=== PATIENT | female | born 1930 | race Caucasian/White ===

== ENCOUNTER → 2016-06-28 | Outpatient (CLI) | payer OTHER ==
[~2016-06-28] MED LIST: ASCA500 PO; ASPEC81 PO; CALCTAB5 PO; CHOL1TAB46 PO; CLBCRM30 EXT; DICL1GEL12 TOP; FOLI1TAB7 PO; HYCUDL5 PO; HYDR200T5 PO; LEVO1TAB35 PO; LVQ750 PO; METH2.5T PO; MULT-506 PO; NITR1CAP32 PO; OMEG10007 PO; POLY335040 PO; PRAV80TA2 PO; PRD5 PO; PRED-301 PO; PRED1SUS3; PRED20TA PO; PREG1CAP28 PO; PRLSR20 PO; SYN100 PO; SYN88 PO; VNTHFA/IN INH; VSC/5 PO; levoxyl PO
== END | disposition home or self-care (01) ==
LOC: C.LABSPEC 12:23
PROVIDERS: ATTEND Internal Medicine
DX: R19.4 Change in bowel habit (principal)

== ENCOUNTER → 2016-07-04 | Outpatient (CLI) | payer OTHER ==
[2016-07-04 13:19] LABS: ALT/SGPT 27 U/L (12-78); AST/SGOT 22 U/L (15-37); BLOOD UREA NITROGEN 17 mg/dl (7-18); BUN/CREATININE RATIO 19.2 (10-20); CALCIUM 9.7 mg/dl (8.5-10.1); CARBON DIOXIDE 32 mmol/L (21-32); CHLORIDE 106 mmol/L (98-107); CREATININE 0.86 mg/dl (0.60-1.20); GLUCOSE 84 mg/dl (70-99); POTASSIUM 3.8 mmol/L (3.5-5.1); SODIUM 144 mmol/L (136-145)
[2016-07-04 13:27] LABS: ALKALINE PHOSPHATASE 47 U/L (45-117); CHOLESTEROL 218 mg/dl (0-200); HDL CHOLESTEROL 107 mg/dl; LDL CHOLESTEROL CALCULATED 98 mg/dl; TRIGLYCERIDES 66 mg/dl (0-150); VERY LOW DENSITY LIPOPROT CALC 13 mg/dl
== END | disposition home or self-care (01) ==
LOC: C.LABSPEC 12:28
PROVIDERS: ATTEND Internal Medicine
DX: Z00.01 Encounter for general adult medical examination with abnormal findings (principal); E03.9 Hypothyroidism, unspecified; E55.9 Vitamin D deficiency, unspecified

== ENCOUNTER 2016-08-20 11:27 | Inpatient (IN) | payer OTHER ==
[2016-08-20] VITALS (7 sets, daily range): BP systolic 113–129; BP diastolic 59–71; PULSE 79–117; TEMP 36.6–37.7; O2SAT 90–97; Ht 165.1 cm; Wt 54.8 kg
[~2016-08-20] VITALS: Ht 165.1 cm; Wt 54.8 kg
[~2016-08-20 11:27] MED LIST changes: -CLBCRM30 EXT; -HYCUDL5 PO; -HYDR200T5 PO; -LEVO1TAB35 PO; -LVQ750 PO; -PRD5 PO; -PRED20TA PO; -SYN100 PO; -SYN88 PO; -VNTHFA/IN INH
[2016-08-20] MEDS ORDERED: ACETAMINOPHEN 325 MG TAB PO PRN (12:00)
[2016-08-20] MEDS ORDERED: ONDANSETRON INJ 2 MG/ML 2 ML VIAL IV PRN (12:00)
[2016-08-20] MEDS ORDERED: LEVALBUTEROL 1.25MG/3ML NEB INH SCH (12:15)
[2016-08-20] MEDS ORDERED: LEVOFLOXACIN / D5W 750 MG in PREMIXED IN D5W 150 ML IV ONE (12:30)
[2016-08-20 12:48] LABS: BASO % 0.1 %; BASO ABS # 0.02 K/uL (0-0.2); EOS % 0.4 %; LYMPH % 8.5 %; MEAN CELL VOLUME 96.4 fL (80-100); MEAN CORPUSCULAR HEMOGLOBIN 33.1 pg (25-34); MEAN PLATELET VOLUME 9.7 fL (7.4-10.4); MONO % 3.9 %; NEUT % 86.1 %; PLATELET COUNT 370 K/uL (130-400); RED BLOOD COUNT 3.84 M/uL (4.2-5.4); WHITE BLOOD COUNT 16.54 K/uL (4.8-10.8)
[2016-08-20 13:04] LABS: PARTIAL THROMBOPLASTIN RATIO 1.1
[2016-08-20 13:09] LABS: COMPLETE YES; MEAN CORPUSCULAR HGB CONC 34.3 g/dl (32-36)
[2016-08-20 13:18] LABS: ALB/GLOB RATIO 0.6 (0.9-2); BUN/CREATININE RATIO 9.4 (10-20); CALCIUM 9.4 mg/dl (8.5-10.1); CREATININE 0.75 mg/dl (0.60-1.20); MAGNESIUM 2.2 mg/dl (1.8-2.4); POTASSIUM 4.1 mmol/L (3.5-5.1)
[2016-08-20] MEDS: SODIUM CHLORIDE 0.9% 1000ML 1,000 ML IV SCH ×2 (13:29→21:54)
[2016-08-20] MEDS: LEVALBUTEROL 1.25MG/3ML NEB INH SCH ×2 (14:14→19:51)
--- NOTE | 2016-08-20 15:05 | DIAGNOSTIC IMAGING REPORT ---
HEAD CT NONCONTRAST CT DOSE: 638.56 mGycm HISTORY: Trauma. Pain. CLOSED HEAD TRAUMA - OCCIPITAL. HEADACHE TECHNIQUE: Multiaxial CT images of the head were performed without the use of intravenous contrast. Comparison: None. Findings: Considerable mucosal thickening of all major sinuses. The calvarium and skull base are intact. The ventricles and sulci are within normal limits. There is no mass, hematoma, midline shift, or acute infarct. Impression: No acute intracranial abnormality. Extensive sinus disease Electronically signed by: Sameer Pepper M.D. 08/20/2016 3:03 PM Dictated Date/Time: 08/20/2016 2:55 PM
--- NOTE | 2016-08-20 15:21 | DIAGNOSTIC IMAGING REPORT ---
CHEST 2 VIEWS ROUTINE CLINICAL HISTORY: BRONCHOPNEUMONITIS dyspnea COMPARISON STUDY: 09/29/2015 FINDINGS: Interval development of a focal consolidative infiltrate medial right base. This also a suggestion of potential scattered nodular changes throughout both hemithoraces. Diaphragms smooth. No evidence for cardiac enlargement. IMPRESSION: 1. Focal consolidative infiltrate medial right base. 2. Scattered areas of nodularity throughout both hemithoraces raising the possibility of multifocal infiltrative change versus metastatic nodularity. 3. CT chest versus a nonemergent CT of the chest post treatment is suggested as follow-up Electronically signed by: Sameer Pepper M.D. 08/20/2016 3:19 PM Dictated Date/Time: 08/20/2016 3:18 PM
[2016-08-20] MEDS: PRAVASTATIN SOD 40 MG TAB PO SCH (18:15)
[2016-08-20] MEDS: ASCORBIC ACID 500 MG TAB PO SCH (18:16)
--- NOTE | 2016-08-20 19:46 | HISTORY & PHYSICAL EXAMINATION ---
DATE OF ADMISSION: 08/20/2016 An 85-year-old female admitted directly from my office with persistent fever and chills, severe cough, started to produce yellow sputum, generalized weakness and poor appetite. HISTORY OF PRESENT ILLNESS: The patient with multiple medical problems including rheumatoid arthritis, she is on methotrexate and prednisone; osteoarthritis; osteopenia; hypercholesterolemia and hypothyroidism. The patient has been ill for about a week. She presented with symptomatology consistent with a viral upper respiratory tract infection. She has been taking Tylenol Cold and also Delsym for cough. The patient was seen in the office because her symptoms have persisted and she was not improving. She was still complaining of feeling weak and tired. Poor appetite. Poor oral intake. Having profuse sweating. Chills. Feeling congested in her nose and sinuses. Also congested in her chest. Having cough, producing yellow sputum. No hemoptysis. She had no vomiting. No diarrhea. In the office, she was febrile. Her temperature was 101.4. She was feeling very weak. Short of breath. In view of her persistent symptomatology, she was admitted for further treatment. The patient also stated in the office that about 4 weeks ago she fell backward and she hit the back of her head. She has been feeling lightheaded. PAST MEDICAL HISTORY: 1. She was hospitalized in April 2015 with multifocal pneumonia that required treatment with IV antibiotics. After her episode because of persistent abnormality in her chest x-ray she was seen by Dr. Osvaldo Cobb in pulmonary consultation. No further evaluation or testing were recommended. Eventually, her symptoms improved. 2. Rheumatoid arthritis, diagnosed in 2010. 3. Total abdominal hysterectomy and bilateral salpingo-oophorectomy at age 29. She had endometriosis. She did receive hormonal replacement therapy until 2000. 4. Appendectomy when she was a teenager. 5. Biopsy of the right breast which was benign, done many years ago. She had another biopsy about 2 years ago which was also benign. She is a 3, para 2 with one miscarriage. 6. Longstanding history of hypercholesterolemia, treated. 7. Longstanding history of hypothyroidism, treated. 8. Osteoarthritis involving multiple joints. 9. Osteopenia. She is on Fosamax and also calcium and vitamin D supplements. 10. She has had a problem with decreased hearing and tinnitus. She has had ENT evaluation. She has hearing aids. 11. Herpes zoster in July 2015 involving the right chest area. She was treated acutely, but also she developed postherpetic neuralgia and she was referred to the pain management clinic. Since then her symptoms have subsided. SOCIAL HISTORY: She is , had 2 children. Denied any smoking. No alcohol. No excessive coffee, tea or soft drinks. She worked in the [employer] business. She is retired. FAMILY HISTORY: Her father in his late 80s or early 90s. He had a problem with circulation as she described it. Her mother at age 72, had atherosclerotic heart disease. She had 2 brothers and 1 sister. Children are alive and well. ALLERGIES: BACTRIM (RASH). REVIEW OF SYSTEMS: She denied any headache, but mostly she is complaining of pressure in her sinuses and nose. She does have rhinorrhea. She does have postnasal drip. Denied any earache. No chest pain with the cough. No shortness of breath. She has persistent cough and producing yellow sputum now. No hemoptysis. No pain in her breasts. No abdominal pain. Slight nausea. Very poor appetite. Poor oral intake. No diarrhea. Denied any pain in her back, but she does have pain in the general area in her muscles and joints. PHYSICAL EXAMINATION: GENERAL: Well-developed, in no acute distress. She is acutely ill. Her weight was recorded at 54.8 kg, height 165.1 cm, BMI 20.1. VITAL SIGNS: Blood pressure 129/59, pulse 112, respirations 18, temperature 37.7 and oxygen saturation 94% on room air. SKIN: Warm and dry. No evidence of any rash. HEENT: Congested nasal mucosa. She usually does wear glasses. She does usually wear hearing aids, but not wearing them today. NECK: Supple. Nontender. No adenopathy, no thyromegaly, no JVD. Normal carotid pulses. No carotid bruit. CHEST: Normal. HEART: Regular heart sounds without any murmur, rub or gallop. LUNGS: Bilateral rhonchi. No wheezes. ABDOMEN: Soft, nontender, without organomegaly or masses. BACK: No spinal tenderness. EXTREMITIES: No edema, clubbing or cyanosis. Osteoarthritic changes. Absent dorsalis pedis pulses. Good posterior tibialis pulses. NEUROLOGIC: She is alert and oriented without evidence of any deficits. LABORATORY TESTS: WBC count 16,540, hemoglobin 12.7, hematocrit 37%, platelet count 370,000. Sodium 134, potassium 4.1, chloride 98, CO2 27, BUN 7, creatinine 0.75, glucose 100, calcium 9.4, magnesium 2.2, total bilirubin 0.5, AST 26, ALT 28, alkaline phosphatase 93, total protein 7.7, albumin 2.9. Prothrombin time 11, INR 1.0, PTT 28.7. Her influenza A and B rapid screen were negative. Her chest x-ray showed multiple abnormalities with focal consolidative infiltrate, medial right base. She also has scattered areas of nodularity throughout both lung beach. This is quite similar to when she presented with her multifocal pneumonia the last time she was hospitalized. CT scan of the head without contrast showed no significant abnormality as far as her brain, but she does have significant sinus disease. Her electrocardiogram showed sinus tachycardia with nonspecific ST-T wave changes. ASSESSMENT: 1. Multifocal pneumonia. 2. Generalized weakness. 3. Anorexia and weight loss. 4. Rheumatoid arthritis. 5. Hypothyroidism. 6. Hypercholesterolemia. 7. Sinus disease. 8. Osteoarthritis. PLAN: The patient was admitted to a medical bed. Resuscitation level 1. Cultures were done. All her laboratory tests were ordered. She was started on IV fluids. Started on IV Levaquin. High-flow treatments with Xopenex. She was continued on most of her oral medications. We will wait for the cultures. Adjust her antibiotic therapy as indicated. We will let her recover and will eventually order physical and occupational therapy. We will need to follow up on her chest x-ray and we may also need to get a CT scan of the chest; that is exactly the cycle that was followed the last time she was hospitalized with similar problem.
[2016-08-20] MEDS: HEPARIN SOD 5000 UNIT/0.5 ML CARP SQ SCH (21:51)
[2016-08-20] MEDS: DOCUSATE SODIUM 100 MG CAP PO SCH (21:54)
[2016-08-20 23:08] LABS: MANUAL MICROSCOPIC REQUIRED? NO; REVIEW REQ? NO; URINE APPEARANCE CLEAR (CLEAR); URINE BILIRUBIN NEG (NEG); URINE COLOR YELLOW; URINE EPITHELIAL CELL AUTO >30 /lpf (0-5); URINE NITRITE NEG (NEG); URINE SPECIFIC GRAVITY 1.009 (1.000-1.030); UROBILINOGEN NEG (NEG)
[2016-08-21] VITALS (7 sets, daily range): BP systolic 115–120; BP diastolic 63; PULSE 65–86; TEMP 36.5–36.7; O2SAT 92–96
[2016-08-21] MEDS: LEVALBUTEROL 1.25MG/3ML NEB INH SCH ×4 (02:08→19:58)
[2016-08-21] MEDS: LEVOTHYROXINE 88 MCG TAB PO SCH (05:48)
[2016-08-21 06:42] LABS: HEMATOCRIT 33.1 % (37-47); MEAN CELL VOLUME 95.7 fL (80-100); MEAN CORPUSCULAR HEMOGLOBIN 32.4 pg (25-34); MEAN CORPUSCULAR HGB CONC 33.8 g/dl (32-36); MEAN PLATELET VOLUME 9.3 fL (7.4-10.4); PLATELET COUNT 307 K/uL (130-400); RED BLOOD COUNT 3.46 M/uL (4.2-5.4); WHITE BLOOD COUNT 12.78 K/uL (4.8-10.8)
[2016-08-21 07:14] LABS: BUN/CREATININE RATIO 14.5 (10-20); CALCIUM 8.5 mg/dl (8.5-10.1); CREATININE 0.6 mg/dl (0.60-1.20); POTASSIUM 3.7 mmol/L (3.5-5.1)
[2016-08-21 07:21] LABS: BASO % 0.1 %; BASO ABS # 0.01 K/uL (0-0.2); COMPLETE YES; IG% 0.9 %; LYMPH % 9.3 %; LYMPH ABS # 1.19 K/uL (1.2-3.4); MONO % 3.7 %; TOXIC GRANULATION 1+
[2016-08-21] MEDS: SODIUM CHLORIDE 0.9% 1000ML 1,000 ML IV SCH ×2 (07:43→17:22)
[2016-08-21] MEDS: DOCUSATE SODIUM 100 MG CAP PO SCH ×2 (07:43→20:50)
[2016-08-21] MEDS: ASCORBIC ACID 500 MG TAB PO SCH (07:43)
[2016-08-21] MEDS: CHOLECALCIFEROL 1000 INTER.UNIT TAB PO SCH (07:43)
[2016-08-21] MEDS: HEPARIN SOD 5000 UNIT/0.5 ML CARP SQ SCH ×2 (07:49→20:53)
[2016-08-21] MEDS: ASPIRIN 81 MG ECTAB PO SCH (11:52)
[2016-08-21] MEDS: LEVOFLOXACIN / D5W 750 MG in PREMIXED IN D5W 150 ML IV SCH (14:02)
[2016-08-21] MEDS: PRAVASTATIN SOD 40 MG TAB PO SCH (17:23)
--- NOTE | 2016-08-21 17:57 | PROGRESS NOTE ---
DATE: 08/21/2016 An 85-year-old female admitted with multifocal pneumonia. The patient was having fever and chills and cough and generalized weakness and poor appetite. The patient was admitted. Cultures were done. She was started on IV Levaquin. The patient remains afebrile since her admission. She is still feeling weak and tired but definitely her condition is gradually improving. I saw her this morning and again this afternoon. This afternoon, she was sitting up in the chair and she was eating her meal. Her appetite seems to be improving. She denied any headache or dizziness or lightheadedness. Denied any chest pain, no shortness of breath. Still with cough. Bringing up quite a bit of secretions, but mostly clear now. No hemoptysis. No nausea, no vomiting. No pain in her back or extremities. PHYSICAL EXAMINATION: GENERAL: Well developed, in no distress. VITAL SIGNS: Blood pressure 115/63, pulse 75, respirations 16, temperature 36.5, oxygen saturation 93% on room air. SKIN: Warm and dry. No rash. HEENT: No mucosal abnormality. NECK: No JVD. No adenopathy. HEART: Regular heart sounds. LUNGS: Only very occasional rhonchi. No wheezing. ABDOMEN: Soft, nontender. EXTREMITIES: No edema, clubbing, or cyanosis. TODAY'S LABORATORY TESTS: WBC count 12,780, hemoglobin 11.2, hematocrit 33.1, platelet count 307,000. Sodium 141, potassium 3.7, chloride 106, CO2 24, BUN 9, creatinine 0.6, glucose 106, calcium 8.5. ASSESSMENT: 1. Multifocal bilateral pneumonia. 2. Rheumatoid arthritis. 3. Osteoarthritis. 4. Generalized weakness. PLAN: 1. Overall, she is doing well. Her condition is improving. 2. Continuing the same medications. 3. Continue IV fluid. 4. Encouraged to be out of bed and ambulate.
[2016-08-21] MEDS ORDERED: COUGH DROP (SUGAR FREE) LOZ 24 LOZ/1 BOX ONE (23:32)
[2016-08-21] MEDS ORDERED: COUGH DROP (SUGAR FREE) LOZ 24 LOZ/1 BOX PO PRN (23:45)
[2016-08-22] VITALS (7 sets, daily range): BP systolic 118–126; BP diastolic 67–70; PULSE 72–94; TEMP 36.6–36.8; O2SAT 95–98
[2016-08-22] MEDS: LEVALBUTEROL 1.25MG/3ML NEB INH SCH ×4 (02:16→19:22)
[2016-08-22] MEDS: SODIUM CHLORIDE 0.9% 1000ML 1,000 ML IV SCH ×3 (03:44→20:39)
[2016-08-22 06:15] LABS: HEMATOCRIT 30.8 % (37-47); MEAN CELL VOLUME 95.4 fL (80-100); MEAN CORPUSCULAR HEMOGLOBIN 32.5 pg (25-34); MEAN CORPUSCULAR HGB CONC 34.1 g/dl (32-36); MEAN PLATELET VOLUME 9.2 fL (7.4-10.4); PLATELET COUNT 318 K/uL (130-400); RED BLOOD COUNT 3.23 M/uL (4.2-5.4); WHITE BLOOD COUNT 11.47 K/uL (4.8-10.8)
[2016-08-22 06:37] LABS: BASO % 0.1 %; BASO ABS # 0.01 K/uL (0-0.2); COMPLETE YES; EOS % 0.4 %; IG% 1.4 %; LYMPH % 12.2 %; NEUT % 80.9 %; POLYCHROMASIA 1+; TOXIC GRANULATION 1+
[2016-08-22] MEDS: LEVOTHYROXINE 88 MCG TAB PO SCH (06:42)
[2016-08-22 06:47] LABS: BUN/CREATININE RATIO 13.4 (10-20); CALCIUM 8.4 mg/dl (8.5-10.1); CREATININE 0.65 mg/dl (0.60-1.20); POTASSIUM 3.5 mmol/L (3.5-5.1)
[2016-08-22] MEDS: DOCUSATE SODIUM 100 MG CAP PO SCH ×2 (07:56→20:39)
[2016-08-22] MEDS: ASCORBIC ACID 500 MG TAB PO SCH (07:56)
[2016-08-22] MEDS: CHOLECALCIFEROL 1000 INTER.UNIT TAB PO SCH (07:56)
[2016-08-22] MEDS: HEPARIN SOD 5000 UNIT/0.5 ML CARP SQ SCH ×2 (08:00→21:04)
[2016-08-22] MEDS ORDERED: ZOLPIDEM TARTRATE 5 MG TAB PO PRN (08:15)
[2016-08-22] MEDS: HYDROCODONE/HOMATROPINE SYRUP 5MG/1.5MG 5ML UDP PO PRN ×2 (08:26→13:45)
[2016-08-22] MEDS: ASPIRIN 81 MG ECTAB PO SCH (11:43)
[2016-08-22] MEDS: LEVOFLOXACIN / D5W 750 MG in PREMIXED IN D5W 150 ML IV SCH (13:45)
[2016-08-22] MEDS: PRAVASTATIN SOD 40 MG TAB PO SCH (17:03)
--- NOTE | 2016-08-22 21:35 | PROGRESS NOTE ---
DATE: 08/22/2016 An 85-year-old female with multiple medical problems: 1. Admitted with multifocal pneumonia. 2. Rheumatoid arthritis. 3. Generalized weakness. 4. Dehydration. 5. Osteoarthritis. The patient was admitted. All cultures were done. She was started on IV Levaquin. Last night, she was uncomfortable, she had persistent cough. She did not sleep well. She has been bringing up a lot of mucus. She remains afebrile since her admission. She denied any headache or dizziness. No lightheadedness. No chest pain. She does not have any significant shortness of breath at this point. No hemoptysis. No abdominal pain, no nausea, no vomiting. No problem with her bowel movements. No problem urinating. EXAMINATION: GENERAL: Well developed, in no distress. VITAL SIGNS: Blood pressure 118/68, pulse 83, respirations 16, temperature 36.8, oxygen saturation 95% on room air. SKIN: Warm and dry. No rash. HEENT: No mucosal abnormality. NECK: No JVD. No adenopathy. HEART: Regular heart sounds. LUNGS: Minimal rhonchi. No wheezing. ABDOMEN: Soft, nontender. BACK: No spinal tenderness. EXTREMITIES: No edema, clubbing or cyanosis. TODAY'S LABORATORY TESTS: WBC count 11,470, hemoglobin 10.5, hematocrit 30.8, platelet count 318,000. Sodium 143, potassium 3.5, chloride 109, CO2 of 24, BUN 9, creatinine 0.65, glucose 93, calcium 8.4. Her sputum culture is growing Streptococcus pneumoniae. ASSESSMENT: 1. Multifocal pneumonia. 2. Fatigue. 3. Dehydration. 4. Rheumatoid arthritis. PLAN: 1. Continue IV fluids. 2. Continue IV Levaquin. 3. We will see what the sensitivity shows. 4. She was encouraged to ambulate today and finally at the end of the day. She did make 4 laps in the unit where she is. She did quite well without any problem. 5. When I saw her this evening, her daughter was at her bedside and we discussed her condition. 6. We will continue with increased activity. Continue with her medications. Repeat her chest x-ray tomorrow.
[2016-08-23] VITALS (9 sets, daily range): BP systolic 118–150; BP diastolic 67–84; PULSE 79–91; TEMP 36.6–36.8; O2SAT 93–98
[2016-08-23] MEDS: LEVALBUTEROL 1.25MG/3ML NEB INH SCH ×4 (02:01→20:00)
[2016-08-23 06:10] LABS: BASO % 0.1 %; BASO ABS # 0.01 K/uL (0-0.2); COMPLETE YES; EOS % 0.9 %; HEMATOCRIT 31.1 % (37-47); IG% 1.6 %; LYMPH % 16.2 %; LYMPH ABS # 1.29 K/uL (1.2-3.4); MEAN CELL VOLUME 95.1 fL (80-100); MEAN CORPUSCULAR HEMOGLOBIN 31.8 pg (25-34); MEAN CORPUSCULAR HGB CONC 33.4 g/dl (32-36); MONO % 5.4 %; NEUT % 75.8 %; PLATELET COUNT 318 K/uL (130-400); RED BLOOD COUNT 3.27 M/uL (4.2-5.4); WHITE BLOOD COUNT 7.97 K/uL (4.8-10.8)
[2016-08-23 06:40] LABS: BUN/CREATININE RATIO 8.4 (10-20); CALCIUM 8.4 mg/dl (8.5-10.1); CREATININE 0.57 mg/dl (0.60-1.20); POTASSIUM 3.6 mmol/L (3.5-5.1)
[2016-08-23] MEDS: SODIUM CHLORIDE 0.9% 1000ML 1,000 ML IV SCH ×2 (07:11→18:45)
[2016-08-23] MEDS: LEVOTHYROXINE 88 MCG TAB PO SCH (07:11)
[2016-08-23] MEDS: ASCORBIC ACID 500 MG TAB PO SCH (08:47)
[2016-08-23] MEDS: DOCUSATE SODIUM 100 MG CAP PO SCH ×3 (08:47→21:50)
[2016-08-23] MEDS: CHOLECALCIFEROL 1000 INTER.UNIT TAB PO SCH (08:47)
[2016-08-23] MEDS: HEPARIN SOD 5000 UNIT/0.5 ML CARP SQ SCH ×2 (08:49→21:38)
--- NOTE | 2016-08-23 09:24 | Clinical Documentation Query ---
CLINICAL DOCUMENTATION QUERY Dr. RYAN GONZALEZ, In your clinical opinion is this patient being managed for: ( ) Sepsis due to streptococcus pneumonia, POA (x ) Other explanation of clinical findings (Please Explain)Patient was not septic. She has pneumonia ( ) Unable to determine (Please Define) ( ) Need to Discuss ( ) Not Agree The medical record reflects the following clinical findings, treatment, and risk factors. Clinical Indicators: 85 yo female presenting to physician office with fever (101.4), chills, yellow sputum, weakness and poor appetite. Sputum cx with Streptococcus pneumoniae. WBC 16.54. Initial VS at hospital 37.7-112-18 129/59 Treatment: IV levaquin, sputum and blood cx, IV fluids, xopenex nebs Risk Factors: RA on chronic methotrexate and prednisone, approx week long illness Please clarify and document your clinical opinion in the progress notes and discharge summary. Terms such as "probable", "suspected", "likely", "questionable", "possible", or "still to be ruled out" are acceptable. IF IN AGREEMENT, YOU MUST DOCUMENT ABOVE DIAGNOSTIC STATEMENT IN DAILY PROGRESS NOTES AND DISCHARGE SUMMARY. This document is not part of the patient's record. Thank You, Nkechi Redding RN [phone]
[2016-08-23] MEDS: ASPIRIN 81 MG ECTAB PO SCH (12:26)
[2016-08-23] MEDS: LEVOFLOXACIN / D5W 750 MG in PREMIXED IN D5W 150 ML IV SCH (13:35)
--- NOTE | 2016-08-23 15:03 | DIAGNOSTIC IMAGING REPORT ---
CHEST 2 VIEWS ROUTINE CLINICAL HISTORY: multifocal pneumonia pneumonitis COMPARISON STUDY: 08/20/2016 FINDINGS: Consolidative processes the right base is similar. Vague multifocal areas of nodularity and or nodular type infiltrative change remains stable. No evidence for cardiac enlargement. Very slight blunting left lateral gastric angle. IMPRESSION: Unchanging multifocal areas of nodularity and/or infiltrative change. Given this lack of interval change, a CT chest would be prudent to further evaluate the possibility of multifocal nodularity. Electronically signed by: Sameer Pepper M.D. 08/23/2016 3:02 PM Dictated Date/Time: 08/23/2016 3:00 PM
[2016-08-23] MEDS: PRAVASTATIN SOD 40 MG TAB PO SCH (17:13)
[2016-08-23] MEDS ORDERED: MAGNESIUM HYDROXIDE SUSP 30 ML UDC PO ONE (17:30)
--- NOTE | 2016-08-23 19:01 | PROGRESS NOTE ---
DATE: 08/23/2016 SUBJECTIVE: An 85-year-old female admitted with multifocal pneumonia involving both lung beach. Her medical problems include: 1. Rheumatoid arthritis. 2. Dehydration. 3. Generalized weakness. 4. Hypothyroidism. 5. Anorexia and weight loss 6. Hypercholesterolemia. 7. Paranasal sinus disease. The patient has remained afebrile. Overall, her condition has improved. She denied any headache or dizziness. No chest pain. No shortness of breath. She is ambulating independently in the hallway. Denied any nausea or vomiting. No pain in her back or extremities. She continues to have cough but not having any purulent sputum. PHYSICAL EXAMINATION: GENERAL: Well developed in no distress. VITAL SIGNS: Blood pressure 138/75, pulse 85, respirations 16, temperature 36.6, oxygen saturation 93% on room air. SKIN: Warm and dry. No rash. HEENT: No mucosal abnormality. She does wear glasses. NECK: Supple. Nontender. No adenopathy. No JVD. HEART: Regular heart sounds. LUNGS: Scattered rhonchi, no wheezing, but her auscultation has much improved. ABDOMEN: Soft, nontender. BACK: No spinal tenderness. EXTREMITIES: No edema, clubbing, or cyanosis. LABORATORY TESTS: Today - WBC count 7970, hemoglobin 10.4, hematocrit 31.1, platelet count 318,000. Sodium 144, potassium 3.6, chloride 109, CO2 26, BUN 5, creatinine 0.57, glucose 87, calcium 8.4. IMAGING DATA: Chest x-ray was done today did not really show much difference from her admission chest x-ray. We are still seeing the same multifocal areas of nodularity and/or infiltrates. CT scan was recommended. Her sputum culture did grow Streptococcus pneumonia. ASSESSMENT: 1. Bilateral multifocal pneumonia. 2. Dehydration. 3. Generalized weakness. 4. Rheumatoid arthritis. PLAN: 1. Continuing the same medications. 2. I was able to change her Levaquin to oral 750 mg daily starting tomorrow. 3. We will go ahead and order a CT scan of the chest without and with contrast. 4. Encouraged to continue ambulation.
[2016-08-23] MEDS ORDERED: DOCUSATE SODIUM 100 MG CAP PO SCH (21:00)
[2016-08-23] MEDS: HYDROCODONE/HOMATROPINE SYRUP 5MG/1.5MG 5ML UDP PO PRN (21:39)
[2016-08-24] VITALS (7 sets, daily range): BP systolic 120; BP diastolic 68–70; PULSE 74–94; TEMP 36.5–37; O2SAT 94–97
[2016-08-24] MEDS: LEVALBUTEROL 1.25MG/3ML NEB INH SCH ×4 (02:06→20:00)
[2016-08-24] MEDS: LEVOTHYROXINE 88 MCG TAB PO SCH (06:25)
[2016-08-24] MEDS: SODIUM CHLORIDE 0.9% 1000ML 1,000 ML IV SCH ×2 (06:25→14:46)
[2016-08-24 07:27] LABS: BASO % 0.2 %; BASO ABS # 0.01 K/uL (0-0.2); COMPLETE YES; EOS % 1.1 %; HEMATOCRIT 29.7 % (37-47); IG% 1.9 %; LYMPH % 22.3 %; LYMPH ABS # 1.39 K/uL (1.2-3.4); MEAN CELL VOLUME 94.9 fL (80-100); MEAN CORPUSCULAR HEMOGLOBIN 32.3 pg (25-34); MEAN PLATELET VOLUME 8.9 fL (7.4-10.4); MONO % 5.6 %; NEUT % 68.9 %; PLATELET COUNT 332 K/uL (130-400); RED BLOOD COUNT 3.13 M/uL (4.2-5.4); WHITE BLOOD COUNT 6.24 K/uL (4.8-10.8)
[2016-08-24 07:53] LABS: BUN/CREATININE RATIO 11.6 (10-20); CALCIUM 8.2 mg/dl (8.5-10.1); CREATININE 0.56 mg/dl (0.60-1.20); POTASSIUM 3.5 mmol/L (3.5-5.1)
[2016-08-24 07:56] LABS: ALB/GLOB RATIO 0.6 (0.9-2)
[2016-08-24] MEDS: CHOLECALCIFEROL 1000 INTER.UNIT TAB PO SCH (08:11)
[2016-08-24] MEDS: ASCORBIC ACID 500 MG TAB PO SCH (08:12)
[2016-08-24] MEDS: HEPARIN SOD 5000 UNIT/0.5 ML CARP SQ SCH ×2 (08:13→20:37)
[2016-08-24] MEDS: DOCUSATE SODIUM 100 MG CAP PO SCH ×2 (08:18→21:00)
[2016-08-24] MEDS ORDERED: METHOTREXATE 2.5 MG TAB PO SCH (09:00)
[2016-08-24] MEDS: LEVOFLOXACIN 750 MG TAB PO SCH (10:49)
[2016-08-24] MEDS: ASPIRIN 81 MG ECTAB PO SCH (10:49)
[2016-08-24] MEDS ORDERED: OPTIRAY 320 IV PRN (15:45)
--- NOTE | 2016-08-24 15:48 | DIAGNOSTIC IMAGING REPORT ---
CT SCAN OF THE CHEST WITH IV CONTRAST CLINICAL HISTORY: Pulmonary nodules. COMPARISON STUDY: Chest CT scans dated 05/11/2015 and 11/07/2005. Chest x-ray dated 08/23/2016. TECHNIQUE: Following the IV administration of 93 cc of Optiray 320, CT scan of the thorax was performed from the thoracic inlet to the upper abdomen. Images are reviewed in the axial, sagittal, and coronal planes. IV contrast was administered without complication. CT DOSE: 199.86 mGy.cm FINDINGS: Thyroid: Atrophic. Thoracic aorta: There is atherosclerotic calcification of the thoracic aorta, which is normal in caliber and demonstrates standard 3-vessel arch anatomy. No dissection is seen. Pulmonary vasculature: The pulmonary trunk is normal in caliber. There are no filling defects identified in the central pulmonary vessels to indicate pulmonary embolus. Note that this examination was not protocoled for evaluation of the pulmonary arteries. Heart: The heart is normal in size and configuration, and without pericardial effusion. There are coronary artery calcifications. Lungs and pleural spaces: The trachea and central airways are clear. Fluid/secretions fill the right lower lobe bronchi. Biapical scarring is observed. There are small pleural effusions. There are numerous foci of patchy nodular consolidation scattered throughout both lungs (greater than 10) with associated air bronchograms. The largest focus of masslike consolidation is present at the right lung base and measures approximately 5.5 x 4 cm as seen on image #238. This is somewhat similar appearance to the 05/11/2015 examination. Mediastinum: There is no mediastinal lymphadenopathy. Carmencita: Clear. Axillae: There is no axillary lymphadenopathy. Upper abdomen: There are bilateral nonobstructing renal calculi. Partially visualized upper abdominal viscera is otherwise within normal limits. Skeletal structures: The skeletal structures are osteopenic. No lytic or blastic bony lesions are seen. IMPRESSION: 1. There are numerous foci of nodular/masslike airspace consolidation scattered throughout both lungs as detailed above. This corresponds to the abnormality seen by chest x-ray and is somewhat similar in appearance to the 05/11/2015 examination and suggests an infectious/inflammatory process such as multifocal pneumonia, septic emboli, an atypical infectious process such as mycobacterial or fungal infection, or possibly organizing pneumonia. The appearance is atypical for neoplasm. Clinical correlation will be essential. Radiographic follow-up to resolution is recommended. Consider pulmonology consultation in follow-up. 2. There are small pleural effusions. 3. Fluid/secretions from the right lower lobe airways. Correlate clinically for evidence of aspiration. 4. There is no mediastinal or hilar lymphadenopathy. 5. Bilateral nonobstructing renal calculi. Electronically signed by: Nathen Francis M.D. 08/24/2016 3:47 PM Dictated Date/Time: 08/24/2016 3:39 PM
[2016-08-24] MEDS: PRAVASTATIN SOD 40 MG TAB PO SCH (17:10)
[2016-08-24] MEDS ORDERED: MAGNESIUM HYDROXIDE SUSP 30 ML UDC PO ONE (19:30)
--- NOTE | 2016-08-24 20:05 | PROGRESS NOTE ---
DATE: 08/24/2016 An 85-year-old female admitted with bilateral multifocal pneumonia. Her medical problems include rheumatoid arthritis, arterial hypertension, generalized weakness, anorexia and weight loss, hypothyroidism, and sinus disease. The patient was admitted. Cultures were done. She was started on IV Levaquin. Given Xopenex high-flow treatments. The patient became afebrile. She has not had any recurrent fever. She continues to have cough. Her sputum is also clearing. She denied any headache or dizziness. Denied any chest pain. No shortness of breath. She has been ambulating in the hallway. No abdominal pain. She has not had a bowel movement. No nausea, no vomiting. No pain in her back or extremities. PHYSICAL EXAMINATION: GENERAL: Well developed, in no distress. VITAL SIGNS: Blood pressure 120/70, pulse 88, respirations 16, temperature 36.5, oxygen saturation 95% on room air. SKIN: Warm and dry. No rash. HEENT: She wears glasses. NECK: Supple. Nontender. No adenopathy. No thyromegaly. HEART: Regular heart sounds. LUNGS: Bilateral rhonchi, minimal. No wheezing. ABDOMEN: Soft, nontender. EXTREMITIES: No edema, clubbing or cyanosis. TODAY'S LABORATORY TESTS: WBC count 6240, hemoglobin 10.1, hematocrit 29.7, platelet count 332,000. Sodium 145, potassium 3.5, chloride 109, CO2 of 30, BUN 7, creatinine 0.56, glucose 83, calcium 8.2, total bilirubin 0.2. AST 32, ALT 31, alkaline phosphatase 55. Total protein 5.7, albumin 2.2. CT scan of the chest was done without and with contrast. It did show multiple foci of nodular mass-like airspace consolidation scattered through both lung beach. Most likely corresponding to a multifocal pneumonia. Minimal pleural effusions also noted. Bilateral nonobstructing renal calculi noted. ASSESSMENT: 1. Multifocal bilateral pneumonia. 2. Her sputum culture did grow Streptococcus pneumonia. 3. Rheumatoid arthritis. 4. Generalized weakness but much improved since her admission. PLAN: 1. She is already on oral Levaquin. 2. Continuing all her medications. 3. She was given a dose of milk of [id number]-cubismight. She is already on Colace. 4. I expect that her x-ray and CT scan picture will take time to start improving, but clinically she is definitely improved. Her cough is subsiding. Her sputum is minimal. Her shortness of breath subsided. She is afebrile. Her WBC count is back to normal. 5. We will see how she is in the morning, and if her condition continues to be stable, we will plan on getting her home.
[2016-08-25] VITALS: O2SAT 96
[2016-08-25 00:29] VITALS: BP 135/71; PULSE 78; TEMP 36.6; O2SAT 94
[2016-08-25] MEDS: SODIUM CHLORIDE 0.9% 1000ML 1,000 ML IV SCH ×2 (01:34→11:41)
[2016-08-25 02:07] VITALS: PULSE 77; O2SAT 95
[2016-08-25] MEDS: LEVALBUTEROL 1.25MG/3ML NEB INH SCH ×2 (02:07→07:37)
[2016-08-25] MEDS: LEVOTHYROXINE 88 MCG TAB PO SCH (06:00)
[2016-08-25 07:37] VITALS: PULSE 76; O2SAT 94
[2016-08-25 07:38] VITALS: BP 129/71; PULSE 57; TEMP 36.8; O2SAT 92
[2016-08-25] MEDS: CHOLECALCIFEROL 1000 INTER.UNIT TAB PO SCH (08:23)
[2016-08-25] MEDS: ASCORBIC ACID 500 MG TAB PO SCH (08:23)
[2016-08-25] MEDS: DOCUSATE SODIUM 100 MG CAP PO SCH (08:25)
[2016-08-25] MEDS: HEPARIN SOD 5000 UNIT/0.5 ML CARP SQ SCH (09:00)
[2016-08-25] MEDS ORDERED: HYCUDL5 PO (10:02)
[2016-08-25] MEDS ORDERED: SYN88 PO (10:02)
[2016-08-25] MEDS ORDERED: PRD5 PO (10:02)
[2016-08-25] MEDS ORDERED: LVQ750 PO (10:02)
--- NOTE | 2016-08-25 10:07 | Discharge Instructions ---
Discharge Instructions Date of Service Aug 25, 2016. Admission Reason for Admission: BILATERAL MULTIFOCAL PNEUMONIA RHEUMATOID ARTHRITIS ARTERIAL HYPERTENSION HYPERCHOLESTEROLEMIA HYPOTHYROIDISM Discharge Discharge Diagnosis / Problem: BILATERAL MULTIFOCAL PNEUMONIA Discharge Goals Goal(s): Decrease discomfort, Improve function, Increase independence, Improve disease control, Improve nutritional status Activity Recommendations Activity Limitations: as noted below (GRADUAL RETURN TO YOUR ACTIVITY YOU TOLERATE) . Instructions / Follow-Up Instructions / Follow-Up DR BARRETT IN ONE WEEK Current Hospital Diet Patient's current hospital diet: Regular Diet Discharge Diet Recommended Diet: Regular Diet Pending Studies Studies pending at discharge: no Laboratory Results Lipid Panel Test 07/04/16 08:40 Range/Units Triglycerides Level 66 0-150 mg/dl Cholesterol Level 218 H 0-200 mg/dl HDL Cholesterol 107 mg/dl Cholesterol/HDL Ratio 2.0 LDL Cholesterol, Calculated 98 mg/dl Medical Emergencies . Who to Call and When: Medical Emergencies: If at any time you feel your situation is an emergency, please call 911 immediately. . Non-Emergent Contact Non-Emergency issues call your: Primary Care Provider . . "Provider Documentation" section prepared by Mauro Barrett. VTE Core Measure Inpt VTE Proph given/why not?: Treatment not indicated
[2016-08-25] MEDS: ASPIRIN 81 MG ECTAB PO SCH (11:41)
[2016-08-25] MEDS: LEVOFLOXACIN 750 MG TAB PO SCH (11:41)
[2016-08-25 12:11] VITALS: BP 129/71; PULSE 57; TEMP 36.8; O2SAT 92
--- NOTE | 2016-08-25 21:48 | PROGRESS NOTE ---
DATE: 08/25/2016 An 85-year-old female, admitted with: 1. Multifocal bilateral pneumonia. 2. Rheumatoid arthritis. 3. Arterial hypertension. 4. Hypothyroidism. 5. Dehydration. The patient was admitted. She was started on IV Levaquin. Started on IV fluids. Her sputum culture grew Streptococcus pneumonia. Her blood cultures remain negative. Overall, her condition has improved. She remained completely afebrile from the time of her admission. Her cough has subsided. She is still producing some phlegm. She denied any headache, dizziness or lightheadedness. Denied any chest pain. No shortness of breath. No abdominal pain. No nausea, no vomiting. She did have multiple bowel movements after the milk of magnesia. No problem urinating. No pain in her back or extremities. She has been ambulating without any problem. PHYSICAL EXAMINATION: GENERAL: Well-developed, in no distress. VITAL SIGNS: Blood pressure 129/71, pulse 57, respirations 18, temperature 36.8 and oxygen saturation 92% on room air. SKIN: Warm and dry. No rash. HEENT: No mucosal abnormality. NECK: No JVD. No adenopathy. HEART: Regular heart sounds. LUNGS: Very minimal rhonchi. No wheezing. ABDOMEN: Soft and nontender. No organomegaly or masses. BACK: No spinal tenderness. EXTREMITIES: No edema, clubbing or cyanosis. ASSESSMENT: 1. Multifocal bilateral pneumonia. 2. Dehydration. 3. Arterial hypertension. 4. Rheumatoid arthritis. PLAN: 1. Overall, her condition has improved. 2. Continuing her on oral Levaquin. 3. She was discharged home today. 4. I will see her in the office next week. 5. We will wait for about 2 weeks and repeat her chest x-ray.
--- NOTE | 2016-09-08 18:16 | DISCHARGE SUMMARY ---
DISCHARGE DIAGNOSES: 1. Bilateral multifocal pneumonia. 2. Rheumatoid arthritis. 3. Arterial hypertension. 4. Hypercholesterolemia. 5. Hypothyroidism. DISCHARGE MEDICATIONS: Included: 1. Hycodan 5 mL p.o. every 4 hours as needed for cough. 2. Levofloxacin 750 mg daily for 7 days. 3. Synthroid 88 mcg daily. 4. Prednisone 7.5 mg daily. 5. Ascorbic acid 1000 mg daily. 6. Aspirin 162 mg daily. 7. Calcium 600 mg twice a day. 8. Vitamin D3 5000 international units daily. 9. Topical Voltaren 1% gel to apply to affected areas and joints as needed. 10. Fish oil 1500 mg daily. 11. Folic acid 1 mg daily except on Saturday. 12. Methotrexate 15 mg weekly on Saturday. 13. Multivitamin 1 daily. 14. Omeprazole 20 mg daily. 15. MiraLax 17 g daily. 16. Pravastatin 80 mg daily. 17. VESIcare 5 mg daily. Mrs. Manzanares is an 85-year-old female, admitted directly from the office with persistent fever and chills, severe cough with production of yellow sputum, generalized weakness and poor appetite. The patient with multiple medical problems as noted above. She has been sick for about a week. She presented with symptomatology consistent with a viral illness. Mostly upper respiratory tract symptomatology. She has been taking Tylenol Cold and Delsym. She was seen in the office because her symptoms have persisted. She was not improving. She was feeling very weak. Tired. Poor appetite. Poor oral intake. She was having profuse sweating. Having chills. Feeling congested in her nose and sinuses. Also in her chest, she is having cough. Producing yellow sputum. No hemoptysis. She had no vomiting. No diarrhea. In the office, she was febrile. Her temperature was 101.4. She was feeling very weak, short of breath. Arrangements were made for admission. PAST MEDICAL HISTORY, SOCIAL HISTORY AND FAMILY HISTORY: All as noted. ALLERGIES: BACTRIM (RASH). MEDICATIONS ON ADMISSION: All as noted on her home medication list. PHYSICAL EXAMINATION AND ADMISSION LABORATORY TESTS: All as noted on her history and physical. HOSPITAL COURSE: The patient was admitted to medical bed. Resuscitation level 1. Cultures were done. All her laboratory tests were ordered. She was started on IV fluids. IV Levaquin. High flow treatments with Xopenex. After she was started on her IV antibiotics, she remained afebrile. She remained weak and tired. Her appetite was poor initially. She was continued on her IV fluid. IV antibiotics. High flow treatments. Her condition started to improve. Her cough also started to improve. Her blood cultures did not show any growth. Her sputum culture grew Streptococcus pneumoniae. It was not susceptible to penicillin but she was on levofloxacin and it was sensitive to levofloxacin. Therapies were ordered. Repeat chest x-ray did not really show any significant improvement but that is really not expected that early in her course. She also had a CT scan of the chest done. It showed numerous foci of nodular mass-like airspace consolidation, scattered throughout both lung beach. This was suspected to reflect infectious inflammatory process, such as multifocal pneumonia. As noted, her condition started to improve. She remained afebrile. Her laboratory tests were monitored. Her appetite improved. She was getting out of bed. The patient was discharged home. Medications as noted above. Follow up in the office in 1 week. Repeat her chest x-ray in about 2-3 weeks down the line.
== END 2016-08-25 13:15 | disposition home or self-care (01) | DRG 195 ==
LOC: C.MED 11:57 → EEVIPCON 11:57
PROVIDERS: ADMIT Internal Medicine; ATTEND Internal Medicine
DX: J13 Pneumonia due to Streptococcus pneumoniae (principal); E86.0 Dehydration; R63.0 Anorexia; R63.4 Abnormal weight loss; Z68.20 Body mass index [BMI] 20.0-20.9, adult; R53.1 Weakness; I10 Essential (primary) hypertension; E03.9 Hypothyroidism, unspecified; E78.00 Pure hypercholesterolemia, unspecified; J32.9 Chronic sinusitis, unspecified; M06.9 Rheumatoid arthritis, unspecified; M85.80 Other specified disorders of bone density and structure, unspecified site; M15.9 Polyosteoarthritis, unspecified; H91.90 Unspecified hearing loss, unspecified ear; Z79.52 Long term (current) use of systemic steroids; Z79.83 Long term (current) use of bisphosphonates; Z79.899 Other long term (current) drug therapy

== ENCOUNTER → 2016-09-19 | Outpatient (CLI) | payer OTHER ==
[~2016-09-19] MED LIST changes: +CLBCRM30 EXT; +HYCUDL5 PO; +HYDR200T5 PO; +LEVO1TAB35 PO; +LVQ750 PO; -NITR1CAP32 PO; +PRD5 PO; -PRED1SUS3; +PRED20TA PO; -PREG1CAP28 PO; +SYN100 PO; +SYN88 PO; +VNTHFA/IN INH; -levoxyl PO
--- NOTE | 2016-09-19 11:04 | DIAGNOSTIC IMAGING REPORT ---
CHEST 2 VIEWS ROUTINE CLINICAL HISTORY: PNEUMONIA COMPARISON STUDY: 08/23/2016 FINDINGS: The cardiac and mediastinal contours remain stable. The patient remains hyperinflated. Underlying emphysema is suspected. There are persistent but improving right lower lobe airspace opacities. There are persistent nodular right apical airspace opacities. There has been resolution of the left midlung zone airspace opacities.[ IMPRESSION: Persistent but improving pulmonary airspace opacities. Electronically signed by: Kareem Barajas M.D. 09/19/2016 11:03 AM Dictated Date/Time: 09/19/2016 11:01 AM
== END | disposition home or self-care (01) ==
LOC: C.RAD 10:28
PROVIDERS: ATTEND Internal Medicine
DX: J18.9 Pneumonia, unspecified organism (principal)

== ENCOUNTER → 2016-11-01 | Outpatient (CLI) | payer OTHER | END | disposition home or self-care (01) | LOC: C.LAB 09:25 | PROVIDERS: ATTEND Urology | DX: N39.0 Urinary tract infection, site not specified (principal) ==

== ENCOUNTER 2016-11-03 07:49 | Emergency (ER) | payer OTHER ==
[~2016-11-03] VITALS: Ht 165.1 cm; Wt 56.4 kg
[~2016-11-03 07:49] MED LIST changes: -CLBCRM30 EXT; -HYDR200T5 PO; -LEVO1TAB35 PO; -PRED-301 PO; -PRED20TA PO; -SYN100 PO; -VNTHFA/IN INH
[2016-11-03 07:52] VITALS: TEMP 36.7; Ht 165.1 cm; Wt 56.4 kg
[2016-11-03] MEDS ORDERED: METHYLPREDNISOLONE 125 MG VIAL IV STA (08:10)
[2016-11-03] MEDS ORDERED: ALBUT/IPRATROP 3MG/0.5MG NEB 3 ML VIAL INH STA (08:10)
[2016-11-03] MEDS ORDERED: ACETAMINOPHEN 500 MG TAB PO STA (08:10)
[2016-11-03 08:26] LABS: HEMATOCRIT 38.5 % (37-47); MEAN CELL VOLUME 97.5 fL (80-100); MEAN CORPUSCULAR HEMOGLOBIN 31.9 pg (25-34); MEAN CORPUSCULAR HGB CONC 32.7 g/dl (32-36); MEAN PLATELET VOLUME 9.8 fL (7.4-10.4); PLATELET COUNT 246 K/uL (130-400); RED BLOOD COUNT 3.95 M/uL (4.2-5.4); WHITE BLOOD COUNT 11.37 K/uL (4.8-10.8)
[2016-11-03 08:29] VITALS: O2SAT 95
--- NOTE | 2016-11-03 08:34 | EMERGENCY ROOM VISIT NOTE ---
History Report prepared by Eliecer: Rosalba Yoon Under the Supervision of: Dr. Nathen Early M.D. First contact with patient: 08:04 Chief Complaint: RESPIRATORY PROBLEMS Stated Complaint: CHEST PAIN FROM PNEUMONIA History of Present Illness The patient is an 85 year old female who presents to the Emergency Room with complaints of worsening left chest pain starting 2 days ago. She describes her pain as sharp. She currently rates her discomfort as an 8/10 in severity. The pain worsens with deep breaths. She feels SOB because the pain prevents her from breathing deeply. The pain goes through to her back. She is spitting up some mucous. Her abdomen feels full. She denies any vomiting. She denies any recent fall or injury. She had pneumonia 2 times in the past year. She is currently not on antibiotics. She denies any history of asthma. She denies any history of blood clots. She does not smoke. She denies any recent travel. Source of History: patient Onset: 2 days ago Position: chest (left) Symptom Intensity: 8/10 Quality: sharp Timing: worsening Modifying Factors (Worsening): other (deep breaths) Associated Symptoms: + SOB, + back pain, No vomiting Note: Pt reports spitting up mucous, abdomen feeling full. Review of Systems See HPI for pertinent positives & negatives. A total of 10 systems reviewed and were otherwise negative. Past Medical & Surgical Medical Problems: (1) ACUTE BRONCHOPNEUMONITIS (2) R. SIDED PNEUMONIA, RHEUMATOID ARTH Family History FH: heart disease Social History Smoking Status: Never Smoker Alcohol Use: none Drug Use: none Marital Status: Occupation Status: retired Current/Historical Medications Scheduled Albuterol Hfa (Ventolin Hfa), 2 PUFFS INH Q6H Clobetasol Propionate (Clobetasol Propionate Cream 0.05%), 1 APPLN EXT BID Folic Acid (Folvite), 1 MG PO QAM Hydroxychloroquine Sulfate (Plaquenil), 200 MG PO DAILY Levofloxacin (Levofloxacin), 750 MG PO DAILY@11 Levofloxacin (Levaquin), 750 MG PO QD@08 Levothyroxine Sodium (Synthroid), 100 MCG PO DAILY Methotrexate (Methotrexate), 8 TAB PO WK Pravastatin Sodium (Pravastatin Sodium), 80 MG PO DAILY Prednisone (Prednisone), 1-4 TAB PO UD Prednisone (Prednisone), 0 PO DAILY Solifenacin (Vesicare), 5 MG PO QAM Scheduled PRN Hydrocodone/Homatropine (Hydromet 5-1.5 mg/5Ml), 5 ML PO Q4H PRN for Cough Allergies Coded Allergies: Sulfamethoxazole w/Trimethoprim (Verified Allergy, Unknown, RASH, 10/27/14) RASH FROM BACTRIM Physical Exam Vital Signs Date Time Temp Pulse Resp B/P Pulse Ox O2 Delivery O2 Flow Rate FiO2 11/03/16 09:58 82 24 115/70 92 Room Air 11/03/16 09:15 86 23 134/59 89 Room Air 11/03/16 08:49 86 26 136/57 92 Room Air 11/03/16 08:29 95 Room Air 11/03/16 08:17 88 11/03/16 07:52 36.7 93 20 134/64 95 Room Air Physical Exam GENERAL: Patient is in no acute distress. HEENT: No acute trauma, normocephalic atraumatic, mucous membranes moist, no nasal congestion, no scleral icterus. NECK: No stridor, no adenopathy, no meningismus, trachea is midline. CHEST: Tender to the left anterior and lateral chest wall. LUNGS: Wheezing bilaterally with crackles at both upper lobes, breath sounds equal, no respiratory distress. HEART: Without murmurs gallops or rubs, regular rate and rhythm. ABDOMEN: Soft, nontender, bowel sounds positive, no hernias, no peritonitis. EXTREMITIES: No cyanosis or edema, full range of motion of all the joints without pain or difficulty, no signs for acute trauma. NEUROLOGIC: Oriented x 3, no acute motor or sensory deficits, no focal weakness. SKIN: No rash, no jaundice, no diaphoresis. Medical Decision & Procedures ER Provider Diagnostic Interpretation: X-ray results as stated below per interpretation by me and the radiologist: CHEST ONE VIEW PORTABLE CLINICAL HISTORY: CHEST PAIN dyspnea COMPARISON STUDY: 09/19/2016 FINDINGS: Diffuse chronic fibrotic change. Diaphragms smooth. Calcific angles are sharp. Possible mild superimposed bronchitis. IMPRESSION: Mild bronchitis superimposed upon chronic pleural and parenchymal change. Electronically signed by: Sameer Pepper M.D. 11/03/2016 8:30 AM Dictated Date/Time: 11/03/2016 8:29 AM CHEST CTA for PULMONARY ARTERIES CT DOSE: 240.71 mGy.cm HISTORY: Chest pain dyspnea TECHNIQUE: Multiaxial CT images of the chest were performed following the intravenous administration of contrast to evaluate the pulmonary arteries. Maximal intensity projection images were also obtained. COMPARISON STUDY: 08/24/2016 FINDINGS: The pulmonary vasculature enhances appropriately. There are no significant filling defects. Small bilateral pleural effusions persist. Multifocal parenchymal infiltrative change improved from the prior study. No new or interval finding. There is no significant mediastinal or hilar adenopathy. note is made of several renal calcifications bilaterally similar to the prior study. IMPRESSION: 1. Study is negative for pulmonary embolus. 2. Improving patchy bilateral parenchymal infiltrative changes. 3. No evidence for new or interval process. Electronically signed by: Sameer Pepper M.D. 11/03/2016 9:43 AM Dictated Date/Time: 11/03/2016 9:40 AM Laboratory Results 11/03/16 08:10 11/03/16 08:10 Test 11/03/16 08:10 Red Blood Count 3.95 M/uL (4.2-5.4) Mean Corpuscular Volume 97.5 fL (80-100) Mean Corpuscular Hemoglobin 31.9 pg (25-34) Mean Corpuscular Hemoglobin Concent 32.7 g/dl (32-36) RDW Standard Deviation 54.1 fL (36.4-46.3) RDW Coefficient of Variation 15.2 % (11.5-14.5) Mean Platelet Volume 9.8 fL (7.4-10.4) Prothrombin Time 11.3 SECONDS (9.0-12.0) Prothromb Time International Ratio 1.1 (0.9-1.1) Activated Partial Thromboplast Time 27.1 SECONDS (21.0-31.0) Partial Thromboplastin Ratio 1.0 D-Dimer 2630 ug/L FEU (0-500) Anion Gap 6.0 mmol/L (3-11) Est Creatinine Clear Calc Drug Dose 51.3 ml/min Estimated GFR () 86.8 Estimated GFR (Non- 74.9 BUN/Creatinine Ratio 13.4 (10-20) Calcium Level 9.0 mg/dl (8.5-10.1) Total Bilirubin 0.7 mg/dl (0.2-1) Aspartate Amino Transf (AST/SGOT) 23 U/L (15-37) Alanine Aminotransferase (ALT/SGPT) 24 U/L (12-78) Alkaline Phosphatase 52 U/L (45-117) Troponin I < 0.015 ng/ml (0-0.045) Total Protein 7.2 gm/dl (6.4-8.2) Albumin 3.3 gm/dl (3.4-5.0) Globulin 3.9 gm/dl (2.5-4.0) Albumin/Globulin Ratio 0.8 (0.9-2) Laboratory results reviewed by me. Medications Administered Medications (Trade) Dose Ordered Sig/Ana Maria Route Start Time Stop Time Status Last Admin Dose Admin Methylprednisolone Sodium Succinate (Solu-Medrol IV) 80 mg NOW STAT IV 11/03/16 08:10 11/03/16 08:14 DC 11/03/16 08:24 80 MG Acetaminophen (Tylenol Tab) 1,000 mg NOW STAT PO 11/03/16 08:10 11/03/16 08:14 DC 11/03/16 08:26 1,000 MG Albuterol/ Ipratropium (Duoneb) 3 ml NOW STAT INH 11/03/16 08:10 11/03/16 08:14 DC 11/03/16 08:26 3 ML Levofloxacin (Levaquin Tab) 750 mg NOW STAT PO 11/03/16 10:03 11/03/16 10:05 DC 11/03/16 10:22 750 MG Albuterol (Ventolin Hfa Inhaler) 2 puffs NOW ONCE INH 11/03/16 10:30 11/03/16 10:31 11/03/16 10:21 2 PUFFS ECG Indication: chest pain, SOB/dyspnea Rate (beats per minute): 90 Rhythm: sinus rhythm Findings: no ectopy, other (short IL, some ST flattening in the inferior and lateral leads) Comparison ECG Date: 20-Aug-2016 Change: EKG today appears improved. ED Course 0807: The patient was evaluated in room B6. A complete history and physical exam was performed. 0810: Duoneb 3 ml INH, Tylenol Tab 1000 mg PO, Solu-Medrol IV 80 mg IV. 0856: I reevaluated the patient. I updated her on the results. She will go for CT scan of the chest. 1002: I discussed the patient's case with Dr. Barnard, [facility] - internal medicine. He agrees with the patient being discharged home. He recommends the patient be started on Levaquin. 1003: Levofloxacin 750 mg PO. 1008: I reevaluated the patient. She is feeling better. I discussed the results and treatment plan with her. She verbalized understanding and agreement. She will be discharged home. 1030: Albuterol 2 puffs INH. Medical Decision Differential diagnoses considered include pneumonia, bronchitis, CHF, pneumothorax, PE, aortic dissection, SD, electrolyte imbalance, anemia. There is a mild leukocytosis, this could be consistent with infection or possibly just her pain. No worrisome anemia. No significant electrolyte abnormality, kidney failure or hepatitis. EKG shows a sinus rhythm with a first -degree AV block, no acute ischemia. Cardiac enzyme testing times one is not consistent with acute cardiac injury. Chest x-ray shows some congestion which appears chronic, no obvious focal pneumonia, no pneumothorax. D-dimer testing was positive. Chest CT shows some congestion, no obvious focal pneumonia, there was no pulmonary embolus. Blood cultures are pending. The patient was given oral Tylenol, IV saline, IV Solu-Medrol and a DuoNeb. She received a dose of oral Levaquin. The patient is feeling improved, she does not want to stay in the hospital, she would like to be discharged home. I discussed the case with her family doctor' s office. The patient is being discharged on Levaquin, albuterol via MDI, prednisone as a taper. She has done well with this regimen in the past. She will see her doctor in a few days for a recheck and has agreed to return here if not improving or worsening. [id number] pain medications have been recommended. She appears to have an acute bronchitis with an exacerbation of her underlying lung disease. Given her circumstances, antibiotics are indicated. Consults Time Called: [phone] Consulting Physician: Dr. Barnard, [facility] - internal medicine Returned Call: [phone] I discussed the patient's case with him. He agrees with the patient being discharged home. He recommends the patient be started on Levaquin. Impression Primary Impression: Left sided chest pain Additional Impression: Acute bronchitis Scribe Attestation The scribe's documentation has been prepared under my direction and personally reviewed by me in its entirety. I confirm that the note above accurately reflects all work, treatment, procedures, and medical decision making performed by me. Departure Information Dispostion Home / Self-Care Prescriptions Prednisone (Prednisone) 20 Mg Tab 0 PO DAILY, #14 TAB 3 TABS DAILY FOR 2 DAYS, THEN 2 TABS DAILY FOR 2 DAYS, THEN 1 TAB DAILY FOR 2 DAYS, THEN 1/2 TAB DAILY FOR 2 DAYS. Prov: Nathen Early M.D. 11/03/16 Levofloxacin (Levaquin) 750 Mg Tab 750 MG PO QD@08 for 7 Days, #9 TAB Prov: Nathen Early M.D. 11/03/16 Albuterol Hfa (VENTOLIN HFA) 200 Puffs/64881 Mcg Aers 2 PUFFS INH Q6H, #1 INHALER Prov: Nathen Early M.D. 11/03/16 Referrals Mauro Reddy M.D. (PCP) Forms HOME CARE DOCUMENTATION FORM, IMPORTANT VISIT INFORMATION Patient Instructions [facility] Additional Instructions heat to the chest wall may help tylenol for pain 1 gram every 6 hours advil for pain 600 mg every 6 hours Levaquin daily for 1 week prednisone as directed albuterol 2 puffs every 6 hours see your doctor this week for a recheck return if worsening or not improving Problem Qualifiers
[2016-11-03 08:45] LABS: ALT/SGPT 24 U/L (12-78); BLOOD UREA NITROGEN 10 mg/dl (7-18); BUN/CREATININE RATIO 13.4 (10-20); CARBON DIOXIDE 31 mmol/L (21-32); CHLORIDE 102 mmol/L (98-107); CREATININE 0.74 mg/dl (0.60-1.20); GLUCOSE 96 mg/dl (70-99); POTASSIUM 3.5 mmol/L (3.5-5.1); SODIUM 139 mmol/L (136-145)
[2016-11-03 08:47] LABS: INR 1.1 (0.9-1.1); PROTHROMBIN TIME (PATIENT) 11.3 SECONDS (9.0-12.0)
[2016-11-03 08:50] LABS: ALB/GLOB RATIO 0.8 (0.9-2); ALKALINE PHOSPHATASE 52 U/L (45-117); AST/SGOT 23 U/L (15-37)
[2016-11-03] MEDS ORDERED: OPTIRAY 320 IV PRN (09:00)
[2016-11-03] MEDS ORDERED: PRED-301 PO (09:27)
[2016-11-03] MEDS ORDERED: HYDR200T5 PO (09:27)
[2016-11-03] MEDS ORDERED: CLBCRM30 EXT (09:27)
[2016-11-03] MEDS ORDERED: SYN100 PO (09:27)
--- NOTE | 2016-11-03 09:44 | DIAGNOSTIC IMAGING REPORT ---
CHEST CTA for PULMONARY ARTERIES CT DOSE: 240.71 mGy.cm HISTORY: Chest pain dyspnea TECHNIQUE: Multiaxial CT images of the chest were performed following the intravenous administration of contrast to evaluate the pulmonary arteries. Maximal intensity projection images were also obtained. COMPARISON STUDY: 08/24/2016 FINDINGS: The pulmonary vasculature enhances appropriately. There are no significant filling defects. Small bilateral pleural effusions persist. Multifocal parenchymal infiltrative change improved from the prior study. No new or interval finding. There is no significant mediastinal or hilar adenopathy. note is made of several renal calcifications bilaterally similar to the prior study. IMPRESSION: 1. Study is negative for pulmonary embolus. 2. Improving patchy bilateral parenchymal infiltrative changes. 3. No evidence for new or interval process. Electronically signed by: Sameer Pepper M.D. 11/03/2016 9:43 AM Dictated Date/Time: 11/03/2016 9:40 AM
[2016-11-03] MEDS ORDERED: LEVOFLOXACIN 250 MG TAB PO STA (10:03)
[2016-11-03] MEDS ORDERED: LEVO1TAB35 PO (10:16)
[2016-11-03] MEDS ORDERED: VNTHFA/IN INH (10:16)
[2016-11-03] MEDS ORDERED: PRED20TA PO (10:16)
[2016-11-03 10:24] VITALS: BP 120/61; PULSE 81; O2SAT 93
[2016-11-03] MEDS ORDERED: ALBUTEROL HFA 8 GM INHALER INH ONE (10:30)
== END 2016-11-03 10:26 | disposition home or self-care (01) ==
LOC: C.EDB 07:51
DX: J20.9 Acute bronchitis, unspecified (principal); R07.9 Chest pain, unspecified; M06.9 Rheumatoid arthritis, unspecified; Z79.899 Other long term (current) drug therapy; Z88.2 Allergy status to sulfonamides; Z82.49 Family history of ischemic heart disease and other diseases of the circulatory system

== ENCOUNTER → 2016-11-23 | Outpatient (CLI) | payer OTHER ==
[~2016-11-23] MED LIST changes: -ASCA500 PO; -ASPEC81 PO; -CALCTAB5 PO; -CHOL1TAB46 PO; +CLBCRM30 EXT; -DICL1GEL12 TOP; +HYDR200T5 PO; -MULT-506 PO; -OMEG10007 PO; -POLY335040 PO; -PRD5 PO; +PRED-301 PO; +PRED20TA PO; -PRLSR20 PO; +SYN100 PO; -SYN88 PO; +VNTHFA/IN INH
[2016-11-23 17:06] LABS: BASO % 0.2 %; BASO ABS # 0.01 K/uL (0-0.2); COMPLETE YES; EOS % 0.3 %; HEMATOCRIT 40.8 % (37-47); IG% 0.2 %; LYMPH % 14.5 %; LYMPH ABS # 0.95 K/uL (1.2-3.4); MEAN CELL VOLUME 98.3 fL (80-100); MEAN CORPUSCULAR HEMOGLOBIN 30.8 pg (25-34); MEAN CORPUSCULAR HGB CONC 31.4 g/dl (32-36); MEAN PLATELET VOLUME 10.4 fL (7.4-10.4); MONO % 2.9 %; NEUT % 81.9 %; PLATELET COUNT 236 K/uL (130-400); RED BLOOD COUNT 4.15 M/uL (4.2-5.4); WHITE BLOOD COUNT 6.54 K/uL (4.8-10.8)
[2016-11-23 17:33] LABS: ALT/SGPT 44 U/L (12-78); CREATININE 0.82 mg/dl (0.60-1.20)
[2016-11-23 17:36] LABS: ALKALINE PHOSPHATASE 60 U/L (45-117); AST/SGOT 28 U/L (15-37)
== END | disposition home or self-care (01) ==
LOC: C.LABBFT 12:32
PROVIDERS: ATTEND Internal Medicine Rheumatology
DX: Z79.899 Other long term (current) drug therapy (principal); M06.9 Rheumatoid arthritis, unspecified; M15.9 Polyosteoarthritis, unspecified

== ENCOUNTER → 2017-01-22 | Outpatient (CLI) | payer OTHER ==
[2017-01-22 12:28] LABS: BASO % 0.2 %; BASO ABS # 0.02 K/uL (0-0.2); COMPLETE YES; EOS % 1.2 %; HEMATOCRIT 40.3 % (37-47); IG% 0.3 %; LYMPH ABS # 1.37 K/uL (1.2-3.4); MEAN CELL VOLUME 98.5 fL (80-100); MEAN CORPUSCULAR HEMOGLOBIN 32.3 pg (25-34); MEAN CORPUSCULAR HGB CONC 32.8 g/dl (32-36); MEAN PLATELET VOLUME 10.7 fL (7.4-10.4); MONO % 3.7 %; NEUT % 81.6 %; PLATELET COUNT 229 K/uL (130-400); RED BLOOD COUNT 4.09 M/uL (4.2-5.4); WHITE BLOOD COUNT 10.57 K/uL (4.8-10.8)
[2017-01-22 13:42] LABS: AST/SGOT 26 U/L (15-37); CREATININE 0.91 mg/dl (0.60-1.20)
[2017-01-22 13:48] LABS: ALKALINE PHOSPHATASE 46 U/L (45-117); ALT/SGPT 27 U/L (12-78)
== END | disposition home or self-care (01) ==
LOC: C.LABBFT 09:34
PROVIDERS: ATTEND Internal Medicine Rheumatology
DX: M15.9 Polyosteoarthritis, unspecified (principal); Z79.899 Other long term (current) drug therapy; M06.9 Rheumatoid arthritis, unspecified

== ENCOUNTER → 2017-04-26 | Outpatient (CLI) | payer OTHER ==
[2017-04-26 12:30] LABS: BASO % 0.4 %; BASO ABS # 0.03 K/uL (0-0.2); COMPLETE YES; EOS % 1.8 %; HEMATOCRIT 39.1 % (37-47); IG% 0.1 %; LYMPH % 19.6 %; LYMPH ABS # 1.52 K/uL (1.2-3.4); MEAN CORPUSCULAR HEMOGLOBIN 32.4 pg (25-34); MEAN CORPUSCULAR HGB CONC 32.7 g/dl (32-36); MONO % 6.8 %; NEUT % 71.3 %; PLATELET COUNT 260 K/uL (130-400); RED BLOOD COUNT 3.95 M/uL (4.2-5.4); WHITE BLOOD COUNT 7.75 K/uL (4.8-10.8)
[2017-04-26 12:50] LABS: ALT/SGPT 22 U/L (12-78); AST/SGOT 18 U/L (15-37); CREATININE 0.83 mg/dl (0.60-1.20)
[2017-04-26 12:53] LABS: ALKALINE PHOSPHATASE 53 U/L (45-117)
== END | disposition home or self-care (01) ==
LOC: C.LABBFT 08:46
PROVIDERS: ATTEND Internal Medicine Rheumatology
DX: M25.532 Pain in left wrist (principal)

== ENCOUNTER → 2017-06-05 | Outpatient (CLI) | payer OTHER ==
[~2017-06-05] MED LIST changes: -FOLI1TAB7 PO; +FOLI1TAB8 PO; -PRED20TA PO; -VNTHFA/IN INH
--- NOTE | 2017-06-06 14:35 | MAMMOGRAPHY REPORT ---
BILATERAL DIGITAL SCREENING MAMMOGRAM TOMOSYNTHESIS WITH CAD: 06/05/2017 CLINICAL HISTORY: Routine screening. Patient has no complaints. TECHNIQUE: Breast tomosynthesis in addition to standard 2D mammography was performed. Current study was also evaluated with a Computer Aided Detection (CAD) system. COMPARISON: Comparison is made to exams dated: 05/21/2016 mammogram, 05/20/2015 mammogram, 05/07/2014 mammogram, 04/30/2013 ultrasound biopsy, 04/23/2013 ultrasound, and 04/23/2013 mammogram - [facility]. BREAST COMPOSITION: The tissue of both breasts is heterogeneously dense, which may obscure small mas ses. FINDINGS: There is stable asymmetry in the far posterior left breast along the posterior nipple line on the CC view. Diffuse bilateral benign-appearing microcalcifications and mild vascular calcificati on in the breasts. No new suspicious mass, architectural distortion or cluster of microcalcification s is seen. IMPRESSION: ACR BI-RADS CATEGORY 1: NEGATIVE There is no mammographic evidence of malignancy. A 1 year screening mammogram is recommended. The pa tient will receive written notification of the results. Approximately 10% of breast cancers are not detected with mammography. A negative mammographic report should not delay biopsy if a clinically suggestive mass is present. Zainab Garcia M.D. ay/:06/05/2017 15:02:07 Spouter: Kamila ROBERTOR, M, [facility] letter sent: Normal 1/2 BI-RADS Code: ACR BI-RADS Category 1: Negative
== END | disposition home or self-care (01) ==
LOC: C.MAMM 14:00
PROVIDERS: ATTEND Internal Medicine
DX: Z12.31 Encounter for screening mammogram for malignant neoplasm of breast (principal)

== ENCOUNTER → 2017-07-30 | Outpatient (CLI) | payer OTHER ==
[2017-07-30 12:50] LABS: BASO % 0.3 %; BASO ABS # 0.03 K/uL (0-0.2); EOS % 1.5 %; EOS ABS # 0.17 K/uL (0-0.5); HEMATOCRIT 38.9 % (37-47); HEMOGLOBIN 12.9 g/dL (12.0-16.0); IG# 0.02 K/uL (0.00-0.02); LYMPH % 11.4 %; MEAN CELL VOLUME 96.8 fL (80-100); MEAN CORPUSCULAR HEMOGLOBIN 32.1 pg (25-34); MEAN CORPUSCULAR HGB CONC 33.2 g/dl (32-36); MEAN PLATELET VOLUME 10.4 fL (7.4-10.4); MONO % 4.3 %; MONO ABS # 0.49 K/uL (0.11-0.59); NEUT % 82.3 %; NEUT ABS # 9.35 K/uL (1.4-6.5); PLATELET COUNT 249 K/uL (130-400); RED CELL DISTRIBUTION WIDTH CV 15.8 % (11.5-14.5); RED CELL DISTRIBUTION WIDTH SD 55.5 fL (36.4-46.3); WHITE BLOOD COUNT 11.36 K/uL (4.8-10.8)
[2017-07-30 13:17] LABS: ALBUMIN 3.3 gm/dl (3.4-5.0); ALT/SGPT 22 U/L (12-78); AST/SGOT 20 U/L (15-37); CREATININE 0.99 mg/dl (0.60-1.20)
[2017-07-30 13:20] LABS: ALKALINE PHOSPHATASE 41 U/L (45-117); TOTAL PROTEIN 7.3 gm/dl (6.4-8.2)
== END | disposition home or self-care (01) ==
LOC: C.LABBFT 09:30
PROVIDERS: ATTEND Internal Medicine Rheumatology
DX: M06.9 Rheumatoid arthritis, unspecified (principal); M25.532 Pain in left wrist

== ENCOUNTER → 2017-07-31 | Outpatient (CLI) | payer OTHER ==
[2017-08-08 15:26] LABS: FECAL OCCULT BLOOD #1 NEGATIVE (NEGATIVE); FECAL OCCULT BLOOD #2 NEGATIVE (NEGATIVE); FECAL OCCULT BLOOD #3 NEGATIVE (NEGATIVE)
== END | disposition home or self-care (01) ==
LOC: C.LABPSFOH 14:52
PROVIDERS: ATTEND Internal Medicine
DX: Z12.11 Encounter for screening for malignant neoplasm of colon (principal)

== ENCOUNTER → 2017-09-11 | Outpatient (CLI) | payer OTHER ==
--- NOTE | 2017-09-11 15:07 | DIAGNOSTIC IMAGING REPORT ---
CHEST 2 VIEWS ROUTINE CLINICAL HISTORY: COUGH dyspnea COMPARISON STUDY: 11/03/2016 FINDINGS: Findings of generally stable diffuse chronic parenchymal fibrosis. Most prominent in the upper lung regions bilaterally with associated chronic apical pleural thickening. Diaphragms are smooth. Heart shows no evidence for significant enlargement. IMPRESSION: Diffuse chronic parenchymal fibrosis and apical pleural reactive change. No acute or superimposed process. The above report was generated using voice recognition software. It may contain grammatical, syntax or spelling errors. Electronically signed by: Sameer Pepper M.D. 09/11/2017 3:06 PM Dictated Date/Time: 09/11/2017 3:05 PM
== END | disposition home or self-care (01) ==
LOC: C.RAD 14:41
PROVIDERS: ATTEND Internal Medicine
DX: R05 Cough (principal); R06.00 Dyspnea, unspecified; J84.10 Pulmonary fibrosis, unspecified

== ENCOUNTER 2019-07-17 19:59 | Inpatient (IN) ==
[2019-07-17 20:22] LABS: Hematocrit (blood only) 22.5 % (37-47); Hemoglobin 7.5 g/dL (12.0-16.0); Mean Corpuscular Hemoglobin 33.8 pg (25-34); Mean Corpuscular Hgb Conc 33.3 g/dL (32-36); Mean Corpuscular Volume 101.4 fL (80-100); Mean Platelet Volume 10.8 fL (7.4-10.4); Platelet Count 261 K/uL (130-400); RDW Coefficient of Variation 15.7 % (11.5-14.5); RDW Standard Deviation 56.6 fL (36.4-46.3); Red Blood Count 2.22 M/uL (4.2-5.4); White Blood Count 9.58 K/uL (4.8-10.8)
[2019-07-17 20:39] LABS: Albumin Level 3.1 gm/dl (3.4-5.0); BUN Creatinine Ratio 57.9 (10-20); Calcium 8.7 mg/dl (8.5-10.1); Creatinine Clr Calc Pharmacy 41.4 ml/min; Est GFR (African American) 72.9; Est GFR (Non-African American) 62.9; Potassium 4.2 mmol/L (3.5-5.1)
[2019-07-17 20:42] LABS: Albumin Globulin Ratio 1.1 (0.9-2); Bilirubin,Total 0.3 mg/dl (0.2-1); Globulin 2.7 gm/dl (2.5-4.0); Total Protein 5.8 gm/dl (6.4-8.2)
[2019-07-17] MEDS ORDERED: FAMOTIDINE 20MG IV PUSH 20 MG/5 ML SYR IV STA (21:01)
[2019-07-17] MEDS ORDERED: SODIUM CHLORIDE 0.9% 500 ML IV ONE (21:01)
[2019-07-17] MEDS ORDERED: SODIUM CHLORIDE 0.9% 250 ML IV PRN (21:03)
[2019-07-17] MEDS ORDERED: PANTOprazole 80 MG in DEXTROSE 5% 100 ML IV STA (21:20)
[2019-07-17 21:28] LABS: INR 1.1 (0.9-1.1); Partial Thromboplastin Ratio 0.7; Partial Thromboplastin Time < 20.0 Seconds (21.0-31.0); Prothrombin Time 10.9 Seconds (9.0-12.0)
[2019-07-17] MEDS ORDERED: PANTOprazole 40 MG in DEXTROSE 5% 100 ML IV SCH (21:30)
[2019-07-17] MEDS ORDERED: IOVERSOL 100ml IV PRN (22:03)
--- NOTE | 2019-07-17 22:34 | CT Scan Report ---
ABDOMEN AND PELVIS CT WITH IV CONTRAST CT DOSE: 226.97 mGy.cm HISTORY: Acute emesis with suspected GI bleed. black emesis, melena TECHNIQUE: Multiaxial CT images of the abdomen and pelvis were performed following the IV administrat ion of 93 cc of Optiray 320, A dose lowering technique was utilized adhering to the principles of AL LEN. COMPARISON STUDY: CT abdomen and pelvis 03/07/2018 FINDINGS: Motion degraded exam. Lung bases are generally clear. No pneumatosis or pneumoperitoneum. Imaged inferior cardiac chambers are unremarkable. The spleen, pancreas, adrenal glands, and gallbladder appear unremarkable. 5 mm hyp odense focus of the right hepatic lobe on image 11 series 2 is too small to characterize however sugg ests probable cyst. Patency of the hepatic and portal veins. Bilateral renal cysts. Indeterminate are a of heterogeneity within the inferior pole left kidney measuring 1.4 x 1.1 cm is suspicious for a po ssible lesion or possible scar. This appears unchanged from comparison. 4 mm nonobstructing calculus of the inferior pole left kidney. 4 mm nonobstructing calculus of the interpolar right kidney. No ure teral calculi or obstructive uropathy. Unremarkable urinary bladder. No adnexal mass lesions. Extensi ve mixed plaque of the aorta with tortuosity. No aneurysm or adenopathy. No small bowel obstruction. Colonic diverticulosis without acute diverticulitis. Moderate fecal reten tion. Appendectomy. There is mild wall thickening with partial distention of the mid ascending colon, image 164 of series 3. Mild wall thickening with partial distention of the distal stomach. Postopera tive changes of the right inguinal tissues. Soft tissues are unremarkable. Demineralized appearance o f the bones. Degenerative changes of the spine, pelvis and hips. No acute fracture identified. Lumbar levoscoliosis. IMPRESSION: 1. No bowel obstruction or pneumoperitoneum. 2. Mild wall thickening of the mid ascending colon may be secondary to partial distention. A focal co litis or mucosal lesion could appear similarly. Findings could be correlated with colonoscopy. 3. Moderate fecal retention. 4. Nonobstructing bilateral nephrolithiasis. 5. Appendectomy. 6. Colonic diverticulosis without acute diverticulitis. 7. Additional findings as above. ACT 112: Negative or not required by law. The above report was generated using voice recognition software. It may contain grammatical, syntax o r spelling errors. Electronically signed by: Gilles Quintero M.D. 07/17/2019 10:33 PM
--- NOTE | 2019-07-17 23:15 | History & Physical Report ---
Date of Service July 17, 2019 Assessment & Plan (1) GI bleed: Admit tele NPO Protonix 40mg IV Q12. 80 mg given in the ED Monitor H&H GI consult - Patient reports having colonoscopy many years ago and does not recall the provider. NSS @ 125. (2) Anemia due to blood loss, acute: HGB 7.5 Transfuse 2 units tonight. (3) Severe hearing loss of both ears: (4) Hypothyroidism: levothyroxine held due to NPO status. (5) Hyperlipidemia: Pravastatin held due to NPO status. History of Present Illness 88 y/o female presented to the ED with a 24 hour history of rectal bleeding and hematemesis. The patient has felt weak. No F/C, cough, chest pain, SOB, abdominal pain, or epistaxis. She does not use anticoagulation. Primary Care Provider: Mauro Barnard MD Allergies Allergy/AdvReac Type Severity Reaction Status Date / Time Bactrim Allergy Unknown RASH Verified 10/27/14 08:06 sulfamethoxazole Allergy Unknown RASH Verified 07/07/19 14:47 trimethoprim Allergy Unknown RASH Verified 07/07/19 14:47 Home Medications Home Medications Medication Instructions Recorded Confirmed Type folic acid 1 mg PO [id number] 03/07/18 07/07/19 History levothyroxine 88 mcg PO DAILY 03/07/18 07/07/19 History methotrexate sodium 15 mg PO WK 03/07/18 07/07/19 History pravastatin 80 mg PO DAILY 03/07/18 07/07/19 History prednisone 5 mg PO DAILY 03/07/18 07/07/19 History solifenacin [Vesicare] 5 mg PO DAILY 03/07/18 07/07/19 History ascorbic acid (vitamin C) 1,000 mg 1 gm PO Q6H 07/07/19 07/07/19 History tablet aspirin 81 mg tablet,delayed 81 mg PO DAILY 07/07/19 07/07/19 History release calcium carbonate 600 mg calcium 600 mg PO DAILY 07/07/19 07/07/19 History (1,500 mg) tablet cholecalciferol (vitamin D3) PO 07/07/19 07/07/19 History ginkgo biloba 120 mg tablet 120 mg PO DAILY 07/07/19 07/07/19 History omega-3 fatty acids-fish oil 360 1 cap PO DAILY 07/07/19 07/07/19 History mg-1,200 mg capsule Past Med/Surg History Medical History Bronchitis Hypercholesteremia Hyperlipidemia Hypothyroidism Normal colonoscopy Surgical History History of appendectomy History of hysterectomy Family History Other Family history non-contributory No family history of adverse response to anesthesia No family history of bleeding disorder Social History Preferred Language: Lithuanian Communication Ability: Impaired Beliefs That Will Affect Care: None Current Living Situation: Other current occupational status: retired Other Information That Helps Us Care for You: No Feels Safe at Home: Yes Safety Concerns: Feels Safe At This Time Smoking Status: Unknown if ever smoked Hx Alcohol Use: No Hx Substance Use: No Review of Systems Review of Systems: All systems reviewed & are unremarkable except as noted in HPI & below Physical Exam Physical Exam: General- adult Female, NAD Head- atraumatic Eyes- PERRL, EOMI, anicteric ENT- oropharynx clear Neck- supple, no JVD, no adenopathy, no thyromegaly. Lungs- CTA b/l no R/R/W. Heart- regular rhythm; no murmur, no gallop, no rub appreciated Abdomen- normal bowel sounds, soft, nontender. Extremities- no pretibial edema, no calf tenderness; peripheral pulses intact Neuro- alert, oriented x 3; firer automatic stoker II-XII grossly intact, non-focal. Skin- warm & dry Results & Data Vital Signs (Past 12 Hours) Vital Signs Temp Pulse Resp BP Pulse Ox 07/17/19 23:00 99 H 17 103/46 L 99 07/17/19 22:54 36.8 C 86 16 105/44 L 99 07/17/19 22:39 36.8 C 90 19 113/43 L 100 07/17/19 22:15 36.8 C 95 H 19 128/54 L 100 07/17/19 21:30 90 18 107/49 L 100 07/17/19 21:11 101 H 19 110/62 96 07/17/19 20:30 96 H 18 102/69 98 07/17/19 20:13 36.7 C 107 H 17 104/51 L 92 Laboratory Results Laboratory Results WBC 9.58 K/uL (4.8-10.8) 07/17/19 19:30 RBC 2.22 M/uL (4.2-5.4) L 07/17/19 19:30 Hgb 7.5 g/dL (12.0-16.0) L 07/17/19 19:30 Hct 22.5 % (37-47) L 07/17/19 19:30 MCV 101.4 fL (80-100) H 07/17/19 19:30 MCH 33.8 pg (25-34) 07/17/19 19:30 MCHC 33.3 g/dL (32-36) 07/17/19 19:30 RDW Std Deviation 56.6 fL (36.4-46.3) H 07/17/19 19:30 RDW Coeff of Jannette 15.7 % (11.5-14.5) H 07/17/19 19:30 Plt Count 261 K/uL (130-400) 07/17/19 19:30 MPV 10.8 fL (7.4-10.4) H 07/17/19 19:30 PT 10.9 Seconds (9.0-12.0) 07/17/19 21:03 INR 1.1 (0.9-1.1) 07/17/19 21:03 APTT < 20.0 Seconds (21.0-31.0) L 07/17/19 21:03 PTT Ratio 0.7 07/17/19 21:03 Sodium 140 mmol/L (136-145) 07/17/19 19:30 Potassium 4.2 mmol/L (3.5-5.1) 07/17/19 19:30 Chloride 108 mmol/L (98-107) H 07/17/19 19:30 Carbon Dioxide 25 mmol/L (21-32) 07/17/19 19:30 Anion Gap 7.0 (3-11) 07/17/19 19:30 BUN 49 mg/dl (7-18) H 07/17/19 19:30 Creatinine 0.84 mg/dl (0.6-1.2) 07/17/19 19:30 Est Cr Clr Drug Dosing 41.4 ml/min 07/17/19 19:30 Est GFR ( Amer) 72.9 07/17/19 19:30 Est GFR (Non-Af Amer) 62.9 07/17/19 19:30 BUN/Creatinine Ratio 57.9 (10-20) H 07/17/19 19:30 Glucose 163 mg/dl (70-99) H 07/17/19 19:30 Lactate 2.3 mmol/L (0.4-2.0) H* 07/17/19 22:36 Calcium 8.7 mg/dl (8.5-10.1) 07/17/19 19:30 Total Bilirubin 0.3 mg/dl (0.2-1) 07/17/19 19:30 AST 18 U/L (15-37) 07/17/19 19:30 ALT 21 U/L (12-78) 07/17/19 19:30 Alkaline Phosphatase 33 U/L (45-117) L 07/17/19 19:30 Troponin I 0.020 ng/ml (0-0.045) 07/17/19 21:19 Total Protein 5.8 gm/dl (6.4-8.2) L 07/17/19 19:30 Albumin 3.1 gm/dl (3.4-5.0) L 07/17/19 19:30 Globulin 2.7 gm/dl (2.5-4.0) 07/17/19 19:30 Albumin/Globulin Ratio 1.1 (0.9-2) 07/17/19 19:30 POC Stool Occult Blood Positive (Negative) A 07/17/19 21:11 Blood Type A Positive 07/17/19 20:36 Blood Type Recheck A Positive 07/17/19 21:19 Antibody Screen NEGATIVE 07/17/19 20:36 Crossmatch See Detail 07/17/19 20:36 Diagnostic Findings [facility], [place] [phone] CT Scan Report Patient: EMBER HURD BAdmit Date: 07/17/19 MR#: [id number]: [address] Acct ID:[id number]: Date: [address] [place] [address]: LIZBETH MARQUEZ [id number] Age: 88Location: ED Sex: F Room/Bed: Att Phy:Diagnosis: VOMITING Pamella Phy: Mauro Reddy M.D.Service Date: 07/17/19 [facility] Phy:Interpreting Phy: Pollo Quintero Admit Phy: Ordering Phy: Tyrone Chance M.D. cc: ~ ABDOMEN AND PELVIS CT WITH IV CONTRAST CT DOSE: 226.97 mGy.cm HISTORY: Acute emesis with suspected GI bleed. black emesis, melena TECHNIQUE: Multiaxial CT images of the abdomen and pelvis were performed following the IV administration of 93 cc of Optiray 320, A dose lowering technique was utilized adhering to the principles of ALARA. COMPARISON STUDY: CT abdomen and pelvis 03/07/2018 FINDINGS: Motion degraded exam. Lung bases are generally clear. No pneumatosis or pneumoperitoneum. Imaged inferior cardiac chambers are unremarkable. The spleen, pancreas, adrenal glands, and gallbladder appear unremarkable. 5 mm hypodense focus of the right hepatic lobe on image 11 series 2 is too small to characterize however suggests probable cyst. Patency of the hepatic and portal veins. Bilateral renal cysts. Indeterminate area of heterogeneity within the inferior pole left kidney measuring 1.4 x 1.1 cm is suspicious for a possible lesion or possible scar. This appears unchanged from comparison. 4 mm nonobstructing calculus of the inferior pole left kidney. 4 mm nonobstructing calculus of the interpolar right kidney. No ureteral calculi or obstructive uropathy. Unremarkable urinary blad demetria. No adnexal mass lesions. Extensive mixed plaque of the aorta with tortuosity. No aneurysm or adenopathy. No small bowel obstruction. Colonic diverticulosis without acute diverticulitis. Moderate fecal retention. Appendectomy. There is mild wall thickening with partial distention of the mid ascending colon, image 164 of series 3. Mild wall thickening with partial distention of the distal stomach. Postoperative changes of the right inguinal tissues. Soft tissues are unremarkable. Demineralized appearance of the bones. Degenerative changes of the spine, pelvis and hips. No acute fracture identified. Lumbar levoscoliosis. IMPRESSION: 1. No bowel obstruction or pneumoperitoneum. 2. Mild wall thickening of the mid ascending colon may be secondary to partial distention. A focal colitis or mucosal lesion could appear similarly. Findings could be correlated with colonoscopy. 3. Moderate fecal retention. 4. Nonobstructing bilateral nephrolithiasis. 5. Appendectomy. 6. Colonic diverticulosis without acute diverticulitis. 7. Additional findings as above. ACT 112: Negative or not required by law. The above report was generated using voice recognition software. It may contain grammatical, syntax or spelling errors. Electronically signed by: Gilles Quintero M.D. 07/17/2019 10:33 PM Dictated: 07/17/192223 Transcribed: 07/17/192223 Code Status & VTE Plan VTE Prophylaxis Plan VTE Prophylaxis will be ordered: Yes PG Care Time/CCT Total # of Minutes Spent Total Time Spent: 65 Total Time Spent with Patient: Total time spent is greater than 50% in coordination of care (as documented) at patient's floor/unit and/or counseling patient: Coding Level of Care Code 65296 Initial Inpt Care Lvl 3 Diagnoses GI bleed K92.2 Anemia due to blood loss, acute D62 Severe hearing loss of both ears H91.93 Hypothyroidism E03.9 Hyperlipidemia E78.5
[2019-07-17] MEDS ORDERED: ACETAMINOPHEN 1000 MG/100 ML IV IV PRN (23:16)
[2019-07-17] MEDS ORDERED: ONDANSETRON INJ 2 MG/ML 2 ML VIAL IV PRN (23:16)
[2019-07-17] MEDS: SODIUM CHLORIDE 0.9% 1000ML 1,000 ML IV SCH (23:46)
[2019-07-18] MEDS ORDERED: SODIUM CHLORIDE 0.9% 250 ML IV PRN (00:25)
--- NOTE | 2019-07-18 03:23 | Emergency Department Note ---
Entered by Luz Elena Herman acting as a scribe for History of Present Illness General Chief complaint: GI Assessment Time Seen by Provider: 07/17/19 20:35 History of Present Illness Provider complaint: rectal bleeding and hematemesis Onset (ago): day(s) 1 Pain Consistency: + other (episode) Maximum Pain Intensity: 0 Quality: + other (rectal bleeding and hematemesis ) Associated symptoms: + denies other symptoms (nausea, dizziness, blood thinner use), + weakness and + other (black vomit yesterday, O2 saturation was 89% on RA upon arrival); no fever/chills Treatments prior to arrival: none The patient is an 88 year old female who presents to the ED with complaints of an episode of rectal bleeding and hematemesis that started 1 day ago. Per , the patients vomit was black yesterday. Per , the patient had rectal bleeding and blood in her vomit starting today. The patient notes that she feels weaker than usual. The patient denies nausea, dizziness, fever and blood thinner use. Per nursing staff, the patients oxygen saturation was 89% on room air. Per nursing staff, the patient does not wear oxygen at baseline. The patient denies receiving any treatments prior to arrival. Home Medications Home Medications Medication Instructions Recorded Confirmed Type folic acid 1 mg PO [id number] 03/07/18 07/07/19 History levothyroxine 88 mcg PO DAILY 03/07/18 07/07/19 History methotrexate sodium 15 mg PO WK 03/07/18 07/07/19 History pravastatin 80 mg PO DAILY 03/07/18 07/07/19 History prednisone 5 mg PO DAILY 03/07/18 07/07/19 History solifenacin [Vesicare] 5 mg PO DAILY 03/07/18 07/07/19 History ascorbic acid (vitamin C) 1,000 mg 1 gm PO Q6H 07/07/19 07/07/19 History tablet aspirin 81 mg tablet,delayed 81 mg PO DAILY 07/07/19 07/07/19 History release calcium carbonate 600 mg calcium 600 mg PO DAILY 07/07/19 07/07/19 History (1,500 mg) tablet cholecalciferol (vitamin D3) PO 07/07/19 07/07/19 History ginkgo biloba 120 mg tablet 120 mg PO DAILY 07/07/19 07/07/19 History omega-3 fatty acids-fish oil 360 1 cap PO DAILY 07/07/19 07/07/19 History mg-1,200 mg capsule Allergies Allergy/AdvReac Type Severity Reaction Status Date / Time Bactrim Allergy Unknown RASH Verified 10/27/14 08:06 sulfamethoxazole Allergy Unknown RASH Verified 07/07/19 14:47 trimethoprim Allergy Unknown RASH Verified 07/07/19 14:47 Past Med/Surg History Medical History Bronchitis Hypercholesteremia Hyperlipidemia Hypothyroidism Normal colonoscopy Surgical History History of appendectomy History of hysterectomy Family History Other Family history non-contributory No family history of adverse response to anesthesia No family history of bleeding disorder Social History Preferred Language: Vietnamese Communication Ability: Impaired Beliefs That Will Affect Care: None Current Living Situation: Other current occupational status: retired Other Information That Helps Us Care for You: No Feels Safe at Home: Yes Safety Concerns: Feels Safe At This Time Smoking Status: Unknown if ever smoked Hx Alcohol Use: No Hx Substance Use: No Review of Systems See HPI for pertinent positives & negatives. and A total of 10 systems reviewed and were otherwise negative Physical Exam Vital Signs Vital Signs - 24 hr 07/17/19 20:13 07/17/19 20:30 07/17/19 21:11 Temperature 36.7 C Temperature Source Oral Pulse Rate 107 H 96 H 101 H Pulse Rate from SpO2 Sensor 98 H 101 H Respiratory Rate 17 18 19 Respiratory Effort / Characteristics Non-Labored Spontaneous Respiratory Depth Normal Blood Pressure 104/51 L 102/69 110/62 Blood Pressure Mean 68 73 73 Pulse Oximetry 92 98 96 Oxygen Delivery Method Nasal Cannula Nasal Cannula Nasal Cannula Oxygen Flow Rate 2 2 2 Sepsis Recent Fever Within 48 Hours No Sepsis New/Unexplained Change in Mental Status No Sepsis Action Taken by Nursing No Action Required 07/17/19 21:30 07/17/19 22:15 Temperature 36.8 C Temperature Source Oral Pulse Rate 90 95 H Pulse Rate from SpO2 Sensor 90 Respiratory Rate 18 19 Respiratory Effort / Characteristics Respiratory Depth Blood Pressure 107/49 L 128/54 L Blood Pressure Mean 66 77 Pulse Oximetry 100 100 Oxygen Delivery Method Nasal Cannula Oxygen Flow Rate 2 2 Sepsis Recent Fever Within 48 Hours Sepsis New/Unexplained Change in Mental Status Sepsis Action Taken by Nursing GENERAL: Awake, alert, fatigued and ill-appearing, in no distress HENT: Normocephalic, atraumatic. Oropharynx with dry mucous membranes and otherwise unremarkable. EYES: Normal conjunctiva. Sclera non-icteric. NECK: Supple. No nuchal rigidity. FROM. No JVD. RESPIRATORY: Clear to auscultation bilaterally. CARDIAC: Regular rate, normal rhythm. Extremities warm and well perfused. Pulses equal. ABDOMEN: Soft, non-distended. No tenderness to palpation. No rebound or guarding. No masses. RECTAL: Scant melena, guaiac positive, no gross blood. MUSCULOSKELETAL: Chest examination reveals no tenderness. The back is symmetrical on inspection without obvious abnormality. There is no CVA tenderness to palpation. No joint edema. LOWER EXTREMITIES: Calves are equal size bilaterally and non-tender. No edema. No discoloration. NEURO: Normal sensorium. No sensory or motor deficits noted. SKIN: No rash or jaundice noted. Course Course 2054: Past medical records reviewed. The patient was evaluated in room C06. A complete history and physical exam was performed. 2133: I discussed the patient's case with Dr. Solorio [facility], Hospitalist. He will evaluate the patient for further management. Consultations Consultation #1: I discussed the patient's case with Dr. Solorio [facility], Hospitalist. He will evaluate the patient for further management. Time: 21:34 Administered Medications Sodium Chloride (Nss 1000ml) 1,000 mls @ 125 mls/hr IV .Q8H MAKEDA Stop: 08/16/19 23:15 Last Admin: 07/17/19 23:46 Dose: 125 mls/hr Documented by: [id number] Ioversol (Optiray 320 100ml) 93 ml IV ONCE PRN PRN Reason: Interaction Checking Stop: 07/21/19 22:02 Last Admin: 07/17/19 22:03 Dose: 93 ml Documented by: [id number] Discontinued Medications Sodium Chloride (Nss) 500 mls @ 999 mls/hr IV .Q31M ONE Stop: 07/17/19 21:31 Last Infusion: 01/31/20 21:55 Dose: 0 mls/hr Documented by: [id number] Admin: 07/17/19 21:17 Dose: 999 mls/hr Documented by: [id number] Famotidine (Pepcid 20mg Iv Push) 20 mg in 5 mls @ 2.5 mls/min IV NOW STA Stop: 07/17/19 21:02 Last Admin: 07/17/19 21:17 Dose: 2.5 mls/min Documented by: [id number] Pantoprazole Sodium 80 mg/ (Dextrose) 120 mls @ 480 mls/hr IV NOW STA Stop: 07/17/19 21:34 Last Infusion: 07/17/19 21:55 Dose: 0 mls/hr Documented by: [id number] Admin: 07/17/19 21:39 Dose: 480 mls/hr Documented by: [id number] Pantoprazole Sodium 40 mg/ (Dextrose) 100 mls @ 20 mls/hr IV Q5H MAKEDA Stop: 07/18/19 02:29 Last Infusion: 07/18/19 00:13 Dose: 0 mls/hr Documented by: [id number] Admin: 07/17/19 22:14 Dose: 20 mls/hr Documented by: [id number] Critical Care Time Critical Care Time: Yes Total Critical Care Time: 35 I have personally spent 35 minutes of critical care time in the direct management of this patient. This includes bedside care, interpretation of diagnostic studies, and testing, discussion with consultants, patient, and family members, and other required patient management activities. This 35 minutes is in excess of all separately billable procedures. Medical Decision Making Differential Diagnosis Differential diagnosis: Etiologies such as esophagitis, variceal bleed, [place], [place] tear, gastritis, peptic ulcer disease, AVM, inflammatory bowel disease, ischemia, diverticulosis, colitis, malignancy, coagulopathy, thrombocytopenia, fissure, hemorrhoid, epistaxis , as well as others were entertained. Medical Records Attestation: I reviewed the patient's medical records. Home Medications Current Medication List: was personally reviewed by me Laboratory Data Attestation: I reviewed the patient's lab results. Result diagrams: 07/17/19 19:30 07/17/19 19:30 Lab Results 07/17/19 07/17/19 07/17/19 Range/Units 19:30 19:30 19:30 WBC 9.58 (4.8-10.8) K/uL RBC 2.22 L (4.2-5.4) M/uL Hgb 7.5 L (12.0-16.0) g/dL Hct 22.5 L (37-47) % MCV 101.4 H (80-100) fL MCH 33.8 (25-34) pg MCHC 33.3 (32-36) g/dL RDW Std Deviation 56.6 H (36.4-46.3) fL RDW Coeff of Jannette 15.7 H (11.5-14.5) % Plt Count 261 (130-400) K/uL MPV 10.8 H (7.4-10.4) fL PT Cancelled INR Cancelled APTT Cancelled PTT Ratio Cancelled Sodium 140 (136-145) mmol/L Potassium 4.2 (3.5-5.1) mmol/L Chloride 108 H (98-107) mmol/L Carbon Dioxide 25 (21-32) mmol/L Anion Gap 7.0 (3-11) BUN 49 H (7-18) mg/dl Creatinine 0.84 (0.6-1.2) mg/dl Est Cr Clr Drug Dosing 41.4 ml/min Est GFR ( Amer) 72.9 Est GFR (Non-Af Amer) 62.9 BUN/Creatinine Ratio 57.9 H (10-20) Glucose 163 H (70-99) mg/dl Lactate (0.4-2.0) mmol/L Calcium 8.7 (8.5-10.1) mg/dl Total Bilirubin 0.3 (0.2-1) mg/dl AST 18 (15-37) U/L ALT 21 (12-78) U/L Alkaline Phosphatase 33 L (45-117) U/L Troponin I (0-0.045) ng/ml Total Protein 5.8 L (6.4-8.2) gm/dl Albumin 3.1 L (3.4-5.0) gm/dl Globulin 2.7 (2.5-4.0) gm/dl Albumin/Globulin Ratio 1.1 (0.9-2) POC Stool Occult Blood (Negative) Blood Type Blood Type Recheck Antibody Screen Crossmatch 07/17/19 07/17/19 07/17/19 Range/Units 20:36 21:03 21:07 WBC (4.8-10.8) K/uL RBC (4.2-5.4) M/uL Hgb (12.0-16.0) g/dL Hct (37-47) % MCV (80-100) fL MCH (25-34) pg MCHC (32-36) g/dL RDW Std Deviation (36.4-46.3) fL RDW Coeff of Jannette (11.5-14.5) % Plt Count (130-400) K/uL MPV (7.4-10.4) fL PT 10.9 INR 1.1 APTT < 20.0 L PTT Ratio 0.7 Sodium (136-145) mmol/L Potassium (3.5-5.1) mmol/L Chloride (98-107) mmol/L Carbon Dioxide (21-32) mmol/L Anion Gap (3-11) BUN (7-18) mg/dl Creatinine (0.6-1.2) mg/dl Est Cr Clr Drug Dosing ml/min Est GFR ( Amer) Est GFR (Non-Af Amer) BUN/Creatinine Ratio (10-20) Glucose (70-99) mg/dl Lactate 2.4 H* (0.4-2.0) mmol/L Calcium (8.5-10.1) mg/dl Total Bilirubin (0.2-1) mg/dl AST (15-37) U/L ALT (12-78) U/L Alkaline Phosphatase (45-117) U/L Troponin I (0-0.045) ng/ml Total Protein (6.4-8.2) gm/dl Albumin (3.4-5.0) gm/dl Globulin (2.5-4.0) gm/dl Albumin/Globulin Ratio (0.9-2) POC Stool Occult Blood (Negative) Blood Type A Positive Blood Type Recheck Antibody Screen NEGATIVE Crossmatch See Detail 07/17/19 07/17/19 07/17/19 Range/Units 21:11 21:19 21:19 WBC (4.8-10.8) K/uL RBC (4.2-5.4) M/uL Hgb (12.0-16.0) g/dL Hct (37-47) % MCV (80-100) fL MCH (25-34) pg MCHC (32-36) g/dL RDW Std Deviation (36.4-46.3) fL RDW Coeff of Jannette (11.5-14.5) % Plt Count (130-400) K/uL MPV (7.4-10.4) fL PT INR APTT PTT Ratio Sodium (136-145) mmol/L Potassium (3.5-5.1) mmol/L Chloride (98-107) mmol/L Carbon Dioxide (21-32) mmol/L Anion Gap (3-11) BUN (7-18) mg/dl Creatinine (0.6-1.2) mg/dl Est Cr Clr Drug Dosing ml/min Est GFR ( Amer) Est GFR (Non-Af Amer) BUN/Creatinine Ratio (10-20) Glucose (70-99) mg/dl Lactate (0.4-2.0) mmol/L Calcium (8.5-10.1) mg/dl Total Bilirubin (0.2-1) mg/dl AST (15-37) U/L ALT (12-78) U/L Alkaline Phosphatase (45-117) U/L Troponin I 0.020 (0-0.045) ng/ml Total Protein (6.4-8.2) gm/dl Albumin (3.4-5.0) gm/dl Globulin (2.5-4.0) gm/dl Albumin/Globulin Ratio (0.9-2) POC Stool Occult Blood Positive A (Negative) Blood Type Blood Type Recheck A Positive Antibody Screen Crossmatch ECG Data Attestation: I personally reviewed and interpreted this ECG as follows: Indication: + weakness Rate (beats per minute): 101 Rhythm: + sinus tachycardia ECG ST segments: no ST elevation ECG Findings: + Other (inferior ST and T-wave abnormality, QTC 459, QRS 70) Comparison ECG Date: from (03/07/2018) Change: the following changes noted (ST abnormalities more pronounced) Blood Pressure Blood Pressure Findings: Low blood pressure Blood Pressure Disposition: further management by hospitalist GREGORY Nash The patient is a pleasant 88-year-old woman with a past medical history of hypertension, hyperlipidemia who presents emergency department with black stools and black hematemesis over the past 24 hours with development of bloody stools and generalized weakness per HPI. On arrival the patient is fatigued and ill- appearing but no acute distress, afebrile with stable vital signs. The patient appears clinically dry. She has mild pallor. Abdomen is benign. Rectal exam demonstrates scant melena that is Hemoccult positive. There is notes no gross blood/hemorrhage. EKG with more pronounced ST abnormalities compared to prior. WBC and platelets within normal limits. H/H 7.5/22.5 and so patient was consented for blood transfusion and ordered for 2 units PRBCs given her hemoglobin was 13.5/41 in May and in the setting of her active GI bleed. Lactate 2.4 however chemistry without acidosis. BUN 49 also suggestive of upper GI bleed. Electrolytes and LFTs unremarkable. Troponin within normal limits but detectable. CT abdomen pelvis demonstrates evidence of colitis versus colonic lesion.. Case was discussed with Dr. Lujan, [facility] [place], who evaluate the patient for admission. Impression & Plan Symptomatic anemia, Melena, Hematemesis, Elevated BUN Discharge Plan Visit Data *Final* Discharge Date/Time: 07/17/19 23:11 Chief Complaint: GI Assessment ED Provider: Tyrone Chance Discharge Problem: Symptomatic anemia, Melena, Hematemesis, Elevated BUN Patient Disposition: Admitted As Inpatient Discharge Instructions Interventions: ED Discharge Assessment Last Done: 07/17/19 23:11 Discharge Problem: Hematemesis Qualifiers: Nausea presence: unspecified Qualified Code(s): K92.0 - Hematemesis The scribe's documentation has been prepared under my direction and personally reviewed by me in its entirety. I confirm that the note above accurately reflects all work, treatment, procedures, and medical decision making performed by me.
[2019-07-18 07:43] LABS: Hematocrit (blood only) 26.8 % (37-47); Hemoglobin 9.2 g/dL (12.0-16.0); Mean Corpuscular Hemoglobin 32.7 pg (25-34); Mean Corpuscular Hgb Conc 34.3 g/dL (32-36); Mean Corpuscular Volume 95.4 fL (80-100); Mean Platelet Volume 10.7 fL (7.4-10.4); Platelet Count 161 K/uL (130-400); RDW Standard Deviation 60.5 fL (36.4-46.3); Red Blood Count 2.81 M/uL (4.2-5.4); White Blood Count 8.15 K/uL (4.8-10.8)
[2019-07-18 07:49] LABS: BUN Creatinine Ratio 52.6 (10-20); Calcium 7.8 mg/dl (8.5-10.1); Creatinine Clr Calc Pharmacy 57.1 ml/min; Est GFR (African American) 96.2; Potassium 3.8 mmol/L (3.5-5.1)
[2019-07-18] MEDS: PANTOprazole 40 MG in SYRINGE 0 ML IV SCH ×2 (08:55→20:40)
[2019-07-18] MEDS: SODIUM CHLORIDE 0.9% 1000ML 1,000 ML IV SCH ×2 (08:55→15:53)
[2019-07-18] MEDS: HYDROCORTISONE SOD 50 MG in SYRINGE 0 ML IV SCH ×3 (10:30→20:40)
--- NOTE | 2019-07-18 12:00 | Gastrointestinal Consultation ---
Date of Consultation July 18, 2019 Assessment & Plan (1) Hematemesis: Acute upper Gi bleed evidenced by hematemesis, significant drop of HCT and increase BUN. Given impressive drop will proceed with EGD today for diagnosis, therapy and assessment of risk of additional bleed. Top differential is peptic ulceration. patient is on aspirin and Prednisone though on low doses. Her Rheumatoid arthritis is under good control and not restricting her much. Discussed with patients daughter, POA and consented. Currently no evidence of active bleed, and no bowel movements today as of now. Present on Admission?: Yes History of Present Illness Reason for Consultation: Gi bleed Attending Physician: Catarina Chavis MD History of Present Illness Admitted with GI bleed. Report dark black vomiting followed by bright red blood yesterday. Hb was 7.5 and pt was given 2 units. Now Hb >9. Pts mental status improved per daughter and now close to normal. She had no GI symptoms prior to the vomiting. Denies abdominal pain or change in bowels. Was in the usual state of health when all this happened. Son in [place] called routinely to find mom was not well and got daughter nearby to come check. History is scant from the patient and . Allergies Allergy/AdvReac Type Severity Reaction Status Date / Time Bactrim Allergy Unknown RASH Verified 10/27/14 08:06 sulfamethoxazole Allergy Unknown RASH Verified 07/07/19 14:47 trimethoprim Allergy Unknown RASH Verified 07/07/19 14:47 Home Medications Home Medications Medication Instructions Recorded Confirmed Type folic acid 1 mg PO [id number] 03/07/18 07/07/19 History levothyroxine 88 mcg PO DAILY 03/07/18 07/07/19 History methotrexate sodium 15 mg PO WK 03/07/18 07/07/19 History pravastatin 80 mg PO DAILY 03/07/18 07/07/19 History prednisone 5 mg PO DAILY 03/07/18 07/07/19 History solifenacin [Vesicare] 5 mg PO DAILY 03/07/18 07/07/19 History ascorbic acid (vitamin C) 1,000 mg 1 gm PO Q6H 07/07/19 07/07/19 History tablet aspirin 81 mg tablet,delayed 81 mg PO DAILY 07/07/19 07/07/19 History release calcium carbonate 600 mg calcium 600 mg PO DAILY 07/07/19 07/07/19 History (1,500 mg) tablet cholecalciferol (vitamin D3) PO 07/07/19 07/07/19 History ginkgo biloba 120 mg tablet 120 mg PO DAILY 07/07/19 07/07/19 History omega-3 fatty acids-fish oil 360 1 cap PO DAILY 07/07/19 07/07/19 History mg-1,200 mg capsule Patient History Medical History Bronchitis Hypercholesteremia Hyperlipidemia Hypothyroidism Normal colonoscopy Surgical History History of appendectomy History of hysterectomy Family History Other Family history non-contributory No family history of adverse response to anesthesia No family history of bleeding disorder Social History Preferred Language: Lithuanian Communication Ability: Impaired Beliefs That Will Affect Care: None Current Living Situation: Other current occupational status: retired Other Information That Helps Us Care for You: No Feels Safe at Home: Yes Safety Concerns: Feels Safe At This Time Smoking Status: Unknown if ever smoked Hx Alcohol Use: No Hx Substance Use: No Review of Systems Constitutional: + weakness; no fever, no body aches, no anorexia and no weight loss Respiratory: no cough and no dyspnea Cardiovascular: no chest pain Gastrointestinal: as per Subjective / HPI and + hematemesis; no change in stools Neurologic: + generalized weakness, + dizziness and + confusion All these are better now and back to normal after transfusion. Physical Exam Constitutional: well nourished and + thin; no acute distress and not ill appearing ENMT: external ear and nose normal, oropharynx normal Neck: trachea midline, no thyromegaly Respiratory: normal respiratory effort, lungs clear to auscultation Cardiovascular: RRR, no murmur, no edema Gastrointestinal (Abdomen): Inspection/Auscultation: abdomen normal to inspection, normal bowel sounds and + scaphoid; abdomen not distended Percussion/Palpation: abdomen soft; abdomen nontender, no abdominal mass and no ascites Skin: no rashes, warm and dry Psychiatric: Orientation: alert Affect: euthymic affect Results & Data Vital Signs (Past 12 Hours) Vital Signs Temp Pulse Pulse Pulse Resp BP BP 07/18/19 11:07 36.8 C 79 79 18 111/43 L 07/18/19 06:33 36.3 C L 81 20 104/40 L 07/18/19 04:19 36.7 C 86 20 116/53 L 07/18/19 03:03 36.7 C 86 20 124/49 L 07/18/19 03:00 36.7 C 86 20 124/49 L 07/18/19 02:40 36.8 C 85 20 112/45 L 07/18/19 02:10 36.6 C 87 20 110/47 L 07/18/19 01:45 36.7 C 95 H 20 115/44 L 07/18/19 01:30 36.8 C 93 H 20 101/45 L 07/18/19 01:22 95 H 07/18/19 01:14 36.7 C 90 20 124/46 L 07/18/19 01:00 36.9 C 87 20 106/49 L 07/18/19 00:58 36.9 C 89 20 109/48 L 07/18/19 00:27 36.9 C 89 20 101/48 L 07/18/19 00:26 36.9 C 89 20 101/48 L 07/18/19 00:15 36.9 C 89 20 99/47 L 07/17/19 23:58 97 H 20 109/52 L 07/17/19 23:45 36.9 C 86 18 109/48 L Pulse Ox 07/18/19 11:07 100 07/18/19 06:33 92 07/18/19 04:19 99 07/18/19 03:03 99 07/18/19 03:00 99 07/18/19 02:40 99 07/18/19 02:10 99 07/18/19 01:45 99 07/18/19 01:30 99 07/18/19 01:22 07/18/19 01:14 99 07/18/19 01:00 99 07/18/19 00:58 99 07/18/19 00:27 99 07/18/19 00:26 99 07/18/19 00:15 99 07/17/19 23:58 95 07/17/19 23:45 100 Laboratory Results Laboratory Results WBC 9.58 K/uL (4.8-10.8) 07/17/19 19:30 RBC 2.22 M/uL (4.2-5.4) L 07/17/19 19:30 Hgb 7.5 g/dL (12.0-16.0) L 07/17/19 19:30 Hct 22.5 % (37-47) L 07/17/19 19:30 MCV 101.4 fL (80-100) H 07/17/19 19:30 MCH 33.8 pg (25-34) 07/17/19 19:30 MCHC 33.3 g/dL (32-36) 07/17/19 19:30 RDW Std Deviation 56.6 fL (36.4-46.3) H 07/17/19 19:30 RDW Coeff of Jannette 15.7 % (11.5-14.5) H 07/17/19 19:30 Plt Count 261 K/uL (130-400) 07/17/19 19:30 MPV 10.8 fL (7.4-10.4) H 07/17/19 19:30 PT 10.9 Seconds (9.0-12.0) 07/17/19 21:03 INR 1.1 (0.9-1.1) 07/17/19 21:03 APTT < 20.0 Seconds (21.0-31.0) L 07/17/19 21:03 PTT Ratio 0.7 07/17/19 21:03 Sodium 140 mmol/L (136-145) 07/17/19 19:30 Potassium 4.2 mmol/L (3.5-5.1) 07/17/19 19:30 Chloride 108 mmol/L (98-107) H 07/17/19 19:30 Carbon Dioxide 25 mmol/L (21-32) 07/17/19 19:30 Anion Gap 7.0 (3-11) 07/17/19 19:30 BUN 49 mg/dl (7-18) H 07/17/19 19:30 Creatinine 0.84 mg/dl (0.6-1.2) 07/17/19 19:30 Est Cr Clr Drug Dosing 41.4 ml/min 07/17/19 19:30 Est GFR ( Amer) 72.9 07/17/19 19:30 Est GFR (Non-Af Amer) 62.9 07/17/19 19:30 BUN/Creatinine Ratio 57.9 (10-20) H 07/17/19 19:30 Glucose 163 mg/dl (70-99) H 07/17/19 19:30 Lactate 2.3 mmol/L (0.4-2.0) H* 07/17/19 22:36 Calcium 8.7 mg/dl (8.5-10.1) 07/17/19 19:30 Total Bilirubin 0.3 mg/dl (0.2-1) 07/17/19 19:30 AST 18 U/L (15-37) 07/17/19 19:30 ALT 21 U/L (12-78) 07/17/19 19:30 Alkaline Phosphatase 33 U/L (45-117) L 07/17/19 19:30 Troponin I 0.020 ng/ml (0-0.045) 07/17/19 21:19 Total Protein 5.8 gm/dl (6.4-8.2) L 07/17/19 19:30 Albumin 3.1 gm/dl (3.4-5.0) L 07/17/19 19:30 Globulin 2.7 gm/dl (2.5-4.0) 07/17/19 19:30 Albumin/Globulin Ratio 1.1 (0.9-2) 07/17/19 19:30 POC Stool Occult Blood Positive (Negative) A 07/17/19 21:11 Blood Type A Positive 07/17/19 20:36 Blood Type Recheck A Positive 07/17/19 21:19 Antibody Screen NEGATIVE 07/17/19 20:36 Crossmatch See Detail 07/17/19 20:36 (1) Hematemesis Nausea presence: unspecified Qualified Code(s): K92.0 - Hematemesis
--- NOTE | 2019-07-18 12:39 | Anesthesiology Consultation ---
Date of Service July 18, 2019 Assessment & Plan Chart Review Chart Review: Acceptable Risk for Surgery Consults Requested none ASA [id number] Proposed Anesthesia Anesthesia Type: General (RSI with Cspine precautions) Risk / Benefits Reviewed With: PT / POA / Parent / Guardian, Accepts Plan and Informed Consent Obtained Additional Comments: rsi, last vomiting yesterday History Surgery Operation Date: 07/18/19 13:00 Proposed Procedures p EGD GI Bleed - Asher Andrea Height/Weight Height: 5 ft 6 in Weight: 52.8 kg Allergies Allergy/AdvReac Type Severity Reaction Status Date / Time Bactrim Allergy Unknown RASH Verified 10/27/14 08:06 sulfamethoxazole Allergy Unknown RASH Verified 07/07/19 14:47 trimethoprim Allergy Unknown RASH Verified 07/07/19 14:47 Medications Home Medications Medication Instructions Recorded Confirmed Last Taken folic acid 1 mg PO [id number] 03/07/18 07/07/19 Unknown levothyroxine 88 mcg PO DAILY 03/07/18 07/07/19 Unknown methotrexate sodium 15 mg PO WK 03/07/18 07/07/19 Unknown pravastatin 80 mg PO DAILY 03/07/18 07/07/19 Unknown prednisone 5 mg PO DAILY 03/07/18 07/07/19 Unknown solifenacin [Vesicare] 5 mg PO DAILY 03/07/18 07/07/19 Unknown ascorbic acid (vitamin C) 1,000 mg 1 gm PO Q6H 07/07/19 07/07/19 Unknown tablet aspirin 81 mg tablet,delayed 81 mg PO DAILY 07/07/19 07/07/19 Unknown release calcium carbonate 600 mg calcium 600 mg PO DAILY 07/07/19 07/07/19 Unknown (1,500 mg) tablet cholecalciferol (vitamin D3) PO 07/07/19 07/07/19 Unknown ginkgo biloba 120 mg tablet 120 mg PO DAILY 07/07/19 07/07/19 Unknown omega-3 fatty acids-fish oil 360 1 cap PO DAILY 07/07/19 07/07/19 Unknown mg-1,200 mg capsule Active Medications Generic Name Dose Route Start Last Admin Trade Name Freq PRN Reason Stop Dose Admin Pantoprazole Sodium 40 mg/ 10 mls @ 5 mls/min 07/18/19 09:00 07/18/19 08:55 Syringe IV 08/17/19 08:59 5 mls/min BID@0900,2100 MAKEDA Administration Sodium Chloride 1,000 mls @ 125 mls/hr 07/17/19 23:16 07/18/19 13:03 Nss 1000ml IV 08/16/19 23:15 0 mls/hr .Q8H MAKEDA Infusion Hydrocortisone Sodium 1 mls @ 4 mls/min 07/18/19 09:30 07/18/19 10:30 Succinate 50 mg/ Syringe IV 08/17/19 09:29 4 mls/min Q8 MAKEDA Administration Ioversol 93 ml 07/17/19 22:03 07/17/19 22:03 Optiray 320 100ml IV 07/21/19 22:02 93 ml ONCE PRN Administration Interaction Checking NPO Date Last Intake of Fluids: 07/17/19 Time Last Intake of Fluids: 21:00 Date Last Intake of Solids: 07/17/19 Time Last Intake of Solids: 21:00 Past Medical History Medical History (Updated 07/18/19 @ 13:06 by Catarina Chavis MD) Anemia due to blood loss, acute Bronchitis Elevated BUN (Acute) GI bleed Hypercholesteremia Hyperlipidemia Hypothyroidism 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 Meniere disease Methotrexate, ferry terminal agent, current use Normal colonoscopy Osteoporosis Polyneuropathy Rheumatoid arthritis Symptomatic anemia (Acute) Vertigo Exercise / Class Metabolic Activity II 4-5 Yardwork/Stairs/Walk up hill no cp/sob Past Family History Family History Other Family history non-contributory No family history of adverse response to anesthesia No family history of bleeding disorder Past Surgical History Surgical History History of appendectomy History of hysterectomy Past Anesthesia History No Hx of Anesthesia Complications and No Family Hx of Anesthesia Complications History of PONV No Hx of PONV and No Hx of Motion Sickness Social History Smoking Status: Unknown if ever smoked Hx Alcohol Use: No Hx Substance Use: No Physical Exam Vital Signs Last Vital Signs Temp 36.8 C 07/18/19 11:07 Pulse 79 07/18/19 11:07 Resp 18 07/18/19 11:07 BP 111/43 L 07/18/19 11:07 Pulse Ox 100 02/01/20 11:07 ENMT Mouth: no TMJ abnormality Thyromental Distance: > or= 3.5 Finger Breadths Mallampati Class: II all bottom back teeth on right side mising. fair dentition otherwise Neck normal visual inspection and trachea midline; neck extension not limited Respiratory normal respiratory effort Auscultation: lungs clear to auscultation bilaterally Cardiovascular Rate/Rhythm: regular rate and regular rhythm Heart Sounds: no murmur Musculoskeletal Spine: normal cervical ROM Extremities: full ROM of extremities Neurologic moves all extremities Psychiatric Orientation: alert and oriented x 3 Testing Laboratory Results 07/18/19 06:11 07/18/19 06:11 PT 10.9 Seconds (9.0-12.0) 07/17/19 21:03 INR 1.1 (0.9-1.1) 07/17/19 21:03 APTT < 20.0 Seconds (21.0-31.0) L 07/17/19 21:03 Blood Type A Positive 07/17/19 20:36 Antibody Screen NEGATIVE 07/17/19 20:36 07/18/19 07/18/19 11:28 07:25 POC Glucose 90 80 Electrocardiogram Date: 07/18/19 Findings: + NSR @ (78bpm) and + T wave inversion (lateral leads) Chest X-Ray Date: 08/08/18 Findings: + NAD (chronic parencyhmal dz) Cervical Spine Date: 07/18/19 Findings: less than 5mm instability
--- NOTE | 2019-07-18 13:07 | Hospitalist Progress Note ---
Date of Service July 18, 2019 Assessment & Plan (1) GI bleed: Presented with hematochezia and hematemesis Hemoglobin was 7.5 on admission down from baseline of 13.5 With hypotension Responded to IV fluids and was transfused 2 units PRBCs EGD as below with gastric ulcer -Continue to follow serial CBC -Continue PPI as below -Transfuse as needed Blood pressures improved also with stress dose steroids as below (2) Peptic ulcer disease: Presented with acute GI bleed and found to have an 8 mm cratered gastric ulcer with a visible vessel-clipped -Continue IV Protonix twice daily and convert to p.o. twice daily upon discharge -Needs repeat EGD in 3 months -Follow-up with GI as an outpatient 2 weeks -Clears diet for now -Moderate risk for rebleed as per GI-we will continue observation here -She is on chronic prednisone which cannot be stopped suddenly-hopefully will be protected with Protonix now -Avoid all NSAIDs and aspirin -Follow-up on pathology from biopsy of stomach for H. pylori (3) Anemia due to blood loss, acute: As above, now improved status post transfusion but decreased slightly again in the afternoon to 8.4 -Follow CBC this evening and again in the morning Transfuse as needed (4) Hypothyroidism: levothyroxine held due to NPO status, recent TSH normal at 1.1 -Can now restart levothyroxine 88 mcg in the morning (5) Hyperlipidemia: Pravastatin held due to NPO status. -Can now restart pravastatin as she is tolerating diet (6) Rheumatoid arthritis: On chronic prednisone and methotrexate Prednisone use likely contributed to peptic ulcer disease -Stress to steroids being given while n.p.o. -Transition to p.o. prednisone 5 mg daily tomorrow -Holding methotrexate (7) Immunosuppression due to chronic steroid use: As noted above (8) Severe hearing loss of both ears: Noted, follows with audiology and considering cochlear implants (9) Abnormal ECG: ECG with anterolateral T wave inversions, troponin is negative x2, patient denies chest pain Likely secondary to severe anemia -Transfuse as above (10) Renal mass: CT with left renal possible mass 1.4 x 1.1 cm-stable from previous -Follow-up as outpatient (11) DVT prophylaxis: SCDs only given acute GI bleeding Disposition-remain on PCU Subjective Patient very hard of hearing. Denies any chest pain or shortness of breath. No abdominal pains. She does not lightheaded. I saw her twice today-the first time was prior to her EGD and then later again after the EGD and she was eating a clear liquids diet. No further melena, hematochezia, or hematemesis since admission. When I saw the second time, the nurse had reported the patient had a brief right-sided headache and right thumb numbness which lasted a few minutes and then went away. Telemetry with normal sinus rhythm with rates in the 80s I discussed the case at length with the traffic operations engineer today Review of Systems Review of Systems: All systems reviewed & are unremarkable except as noted in HPI & below Physical Exam Constitutional: + thin; no acute distress Eyes: + anicteric sclerae ENMT: Ears: + hearing impairment Neck: trachea midline, no thyromegaly Respiratory: normal respiratory effort, lungs clear to auscultation Cardiovascular: RRR, no murmur, no edema Chest (Breasts): Chest: normal inspection of chest Gastrointestinal (Abdomen): normal bowel sounds, soft, nontender, no hepatosplenomegaly Musculoskeletal: Extremities: extremities normal to inspection; no cyanosis and no clubbing Skin: no rashes, warm and dry Neurologic: moves all extremities and awake; no focal motor deficits Psychiatric: Orientation: alert, oriented to person and cooperative Lymphatic: no lymphedema Results & Data ([facility]) Vital Signs (Past 12 Hours) Vital Signs Temp Pulse Pulse Pulse Resp BP BP 07/18/19 11:07 36.8 C 79 79 18 111/43 L 07/18/19 06:33 36.3 C L 81 20 104/40 L 07/18/19 04:19 36.7 C 86 20 116/53 L 07/18/19 03:03 36.7 C 86 20 124/49 L 07/18/19 03:00 36.7 C 86 20 124/49 L 07/18/19 02:40 36.8 C 85 20 112/45 L 07/18/19 02:10 36.6 C 87 20 110/47 L 07/18/19 01:45 36.7 C 95 H 20 115/44 L 07/18/19 01:30 36.8 C 93 H 20 101/45 L 07/18/19 01:22 95 H 07/18/19 01:14 36.7 C 90 20 124/46 L Pulse Ox 07/18/19 11:07 100 07/18/19 06:33 92 07/18/19 04:19 99 07/18/19 03:03 99 07/18/19 03:00 99 07/18/19 02:40 99 07/18/19 02:10 99 07/18/19 01:45 99 07/18/19 01:30 99 07/18/19 01:22 07/18/19 01:14 99 Laboratory Results 07/18/19 07/18/19 07/18/19 Range/Units 11:28 07:25 06:11 WBC (4.8-10.8) K/uL RBC (4.2-5.4) M/uL Hgb (12.0-16.0) g/dL Hct (37-47) % MCV (80-100) fL MCH (25-34) pg MCHC (32-36) g/dL RDW Std Deviation (36.4-46.3) fL RDW Coeff of Jannette (11.5-14.5) % Plt Count (130-400) K/uL MPV (7.4-10.4) fL PT INR APTT PTT Ratio Sodium (136-145) mmol/L Potassium (3.5-5.1) mmol/L Chloride (98-107) mmol/L Carbon Dioxide (21-32) mmol/L Anion Gap (3-11) BUN (7-18) mg/dl Creatinine (0.6-1.2) mg/dl Est Cr Clr Drug Dosing ml/min Est GFR ( Amer) Est GFR (Non-Af Amer) BUN/Creatinine Ratio (10-20) Glucose (70-99) mg/dl POC Glucose 90 80 (70-99) mg/dl Lactate (0.4-2.0) mmol/L Calcium (8.5-10.1) mg/dl Total Bilirubin (0.2-1) mg/dl AST (15-37) U/L ALT (12-78) U/L Alkaline Phosphatase (45-117) U/L Troponin I 0.023 (0-0.045) ng/ml Total Protein (6.4-8.2) gm/dl Albumin (3.4-5.0) gm/dl Globulin (2.5-4.0) gm/dl Albumin/Globulin Ratio (0.9-2) POC Stool Occult Blood (Negative) Blood Type Blood Type Recheck Antibody Screen Crossmatch 07/18/19 07/18/19 07/17/19 Range/Units 06:11 06:11 22:36 WBC 8.15 (4.8-10.8) K/uL RBC 2.81 L (4.2-5.4) M/uL Hgb 9.2 L (12.0-16.0) g/dL Hct 26.8 L (37-47) % MCV 95.4 D (80-100) fL MCH 32.7 (25-34) pg MCHC 34.3 (32-36) g/dL RDW Std Deviation 60.5 H (36.4-46.3) fL RDW Coeff of Jannette 18.0 H (11.5-14.5) % Plt Count 161 (130-400) K/uL MPV 10.7 H (7.4-10.4) fL PT INR APTT PTT Ratio Sodium 145 (136-145) mmol/L Potassium 3.8 (3.5-5.1) mmol/L Chloride 114 H (98-107) mmol/L Carbon Dioxide 28 (21-32) mmol/L Anion Gap 2.0 L (3-11) BUN 31 H (7-18) mg/dl Creatinine 0.59 L (0.6-1.2) mg/dl Est Cr Clr Drug Dosing 57.1 ml/min Est GFR ( Amer) 96.2 Est GFR (Non-Af Amer) 83.0 BUN/Creatinine Ratio 52.6 H (10-20) Glucose 87 (70-99) mg/dl POC Glucose (70-99) mg/dl Lactate 2.3 H* (0.4-2.0) mmol/L Calcium 7.8 L (8.5-10.1) mg/dl Total Bilirubin (0.2-1) mg/dl AST (15-37) U/L ALT (12-78) U/L Alkaline Phosphatase (45-117) U/L Troponin I (0-0.045) ng/ml Total Protein (6.4-8.2) gm/dl Albumin (3.4-5.0) gm/dl Globulin (2.5-4.0) gm/dl Albumin/Globulin Ratio (0.9-2) POC Stool Occult Blood (Negative) Blood Type Blood Type Recheck Antibody Screen Crossmatch 07/17/19 07/17/19 07/17/19 Range/Units 21:19 21:19 21:11 WBC (4.8-10.8) K/uL RBC (4.2-5.4) M/uL Hgb (12.0-16.0) g/dL Hct (37-47) % MCV (80-100) fL MCH (25-34) pg MCHC (32-36) g/dL RDW Std Deviation (36.4-46.3) fL RDW Coeff of Jannette (11.5-14.5) % Plt Count (130-400) K/uL MPV (7.4-10.4) fL PT INR APTT PTT Ratio Sodium (136-145) mmol/L Potassium (3.5-5.1) mmol/L Chloride (98-107) mmol/L Carbon Dioxide (21-32) mmol/L Anion Gap (3-11) BUN (7-18) mg/dl Creatinine (0.6-1.2) mg/dl Est Cr Clr Drug Dosing ml/min Est GFR ( Amer) Est GFR (Non-Af Amer) BUN/Creatinine Ratio (10-20) Glucose (70-99) mg/dl POC Glucose (70-99) mg/dl Lactate (0.4-2.0) mmol/L Calcium (8.5-10.1) mg/dl Total Bilirubin (0.2-1) mg/dl AST (15-37) U/L ALT (12-78) U/L Alkaline Phosphatase (45-117) U/L Troponin I 0.020 (0-0.045) ng/ml Total Protein (6.4-8.2) gm/dl Albumin (3.4-5.0) gm/dl Globulin (2.5-4.0) gm/dl Albumin/Globulin Ratio (0.9-2) POC Stool Occult Blood Positive A (Negative) Blood Type Blood Type Recheck A Positive Antibody Screen Crossmatch 07/17/19 07/17/19 07/17/19 Range/Units 21:07 21:03 20:36 WBC (4.8-10.8) K/uL RBC (4.2-5.4) M/uL Hgb (12.0-16.0) g/dL Hct (37-47) % MCV (80-100) fL MCH (25-34) pg MCHC (32-36) g/dL RDW Std Deviation (36.4-46.3) fL RDW Coeff of Jannette (11.5-14.5) % Plt Count (130-400) K/uL MPV (7.4-10.4) fL PT 10.9 INR 1.1 APTT < 20.0 L PTT Ratio 0.7 Sodium (136-145) mmol/L Potassium (3.5-5.1) mmol/L Chloride (98-107) mmol/L Carbon Dioxide (21-32) mmol/L Anion Gap (3-11) BUN (7-18) mg/dl Creatinine (0.6-1.2) mg/dl Est Cr Clr Drug Dosing ml/min Est GFR ( Amer) Est GFR (Non-Af Amer) BUN/Creatinine Ratio (10-20) Glucose (70-99) mg/dl POC Glucose (70-99) mg/dl Lactate 2.4 H* (0.4-2.0) mmol/L Calcium (8.5-10.1) mg/dl Total Bilirubin (0.2-1) mg/dl AST (15-37) U/L ALT (12-78) U/L Alkaline Phosphatase (45-117) U/L Troponin I (0-0.045) ng/ml Total Protein (6.4-8.2) gm/dl Albumin (3.4-5.0) gm/dl Globulin (2.5-4.0) gm/dl Albumin/Globulin Ratio (0.9-2) POC Stool Occult Blood (Negative) Blood Type A Positive Blood Type Recheck Antibody Screen NEGATIVE Crossmatch See Detail 07/17/19 07/17/19 07/17/19 Range/Units 19:30 19:30 19:30 WBC 9.58 (4.8-10.8) K/uL RBC 2.22 L (4.2-5.4) M/uL Hgb 7.5 L (12.0-16.0) g/dL Hct 22.5 L (37-47) % MCV 101.4 H (80-100) fL MCH 33.8 (25-34) pg MCHC 33.3 (32-36) g/dL RDW Std Deviation 56.6 H (36.4-46.3) fL RDW Coeff of Jannette 15.7 H (11.5-14.5) % Plt Count 261 (130-400) K/uL MPV 10.8 H (7.4-10.4) fL PT Cancelled INR Cancelled APTT Cancelled PTT Ratio Cancelled Sodium 140 (136-145) mmol/L Potassium 4.2 (3.5-5.1) mmol/L Chloride 108 H (98-107) mmol/L Carbon Dioxide 25 (21-32) mmol/L Anion Gap 7.0 (3-11) BUN 49 H (7-18) mg/dl Creatinine 0.84 (0.6-1.2) mg/dl Est Cr Clr Drug Dosing 41.4 ml/min Est GFR ( Amer) 72.9 Est GFR (Non-Af Amer) 62.9 BUN/Creatinine Ratio 57.9 H (10-20) Glucose 163 H (70-99) mg/dl POC Glucose (70-99) mg/dl Lactate (0.4-2.0) mmol/L Calcium 8.7 (8.5-10.1) mg/dl Total Bilirubin 0.3 (0.2-1) mg/dl AST 18 (15-37) U/L ALT 21 (12-78) U/L Alkaline Phosphatase 33 L (45-117) U/L Troponin I (0-0.045) ng/ml Total Protein 5.8 L (6.4-8.2) gm/dl Albumin 3.1 L (3.4-5.0) gm/dl Globulin 2.7 (2.5-4.0) gm/dl Albumin/Globulin Ratio 1.1 (0.9-2) POC Stool Occult Blood (Negative) Blood Type Blood Type Recheck Antibody Screen Crossmatch PG Care Time/CCT Total # of Minutes Spent Total Time Spent with Patient: Total time spent is greater than 50% in cooling tower technician rdination of care (as documented) at patient's floor/unit and/or counseling patient: Coding Level of Care Code 57429 Subseq Hosp Care Lvl 3 Diagnoses GI bleed K92.2 Peptic ulcer disease K27.9 Anemia due to blood loss, acute D62 Hypothyroidism E03.9 Hyperlipidemia E78.5 Rheumatoid arthritis M06.9 Immunosuppression due to chronic steroid use Z79.52 Severe hearing loss of both ears H91.93 Abnormal ECG R94.31 Renal mass N28.89 DVT prophylaxis Z29.9
--- NOTE | 2019-07-18 13:14 | XRay Report ---
XR cervical spine 2 or 3V CLINICAL HISTORY: Preop. Rheumatoid arthritis., flex ex films. eval for instability COMPARISON STUDY: Cervical spine 07/30/2010. FINDINGS: Mild reversal the normal lordotic curvature. Mild anterolisthesis of C3 on C4 and C4 on C5. This remains unchanged throughout flexion and extension. This is similar to the prior study and favo rs long-standing degenerative change. There are severe disc space narrowing at C5-C6 and C6-C7 which has slightly progressed. Prevertebral soft tissues and the C1-C2 interval are intact. Xvie-ex-xzlmltr e facet degenerative changes within the cervical spine. IMPRESSION: 1. The C1-C2 interval is maintained throughout flexion and extension. 2. Mild anterolisthesis of C3 on C4 and C4 on C5, unchanged. This remains intact throughout flexion a nd extension and favors long-standing degenerative change. ACT 112: Negative or not required by law. Electronically signed by: Fernando Melgoza M.D. 07/18/2019 1:13 PM
[2019-07-18] MEDS ORDERED: fentaNYL citrate 100 MCG/2 ML VIAL IV PRN (13:24)
[2019-07-18] MEDS ORDERED: fentaNYL citrate 100 MCG/2 ML VIAL ONE (13:24)
[2019-07-18] MEDS ORDERED: NEOSTIGMINE METHYLSULFATE 5 MG/5 ML SYR ONE (13:24)
[2019-07-18] MEDS ORDERED: LIDOCAINE HCL 2% 2 ML VIAL/AMP(20MG/ML) INFIL ONE (13:24)
[2019-07-18] MEDS ORDERED: MEPERIDINE HCL 25 MG/ML CARP IV PRN (13:24)
[2019-07-18] MEDS ORDERED: PROPOFOL IV EMULSION 10 MG/ML 20 ML VIAL IV ONE (13:24)
[2019-07-18] MEDS ORDERED: ATROPINE SULFATE 0.1 MG/ML 10ML SYR IV PRN (13:24)
[2019-07-18] MEDS ORDERED: DEXAMETHASONE SOD INJ 4 MG/ML VIAL ONE (13:24)
[2019-07-18] MEDS ORDERED: ALBUT/IPRATROP 3MG/0.5MG NEB 3 ML VIAL INH PRN (13:24)
[2019-07-18] MEDS ORDERED: ePHEDrine sulfate 50 MG/ML AMP IV PRN (13:24)
[2019-07-18] MEDS ORDERED: ONDANSETRON INJ 2 MG/ML 2 ML VIAL ONE (13:24)
[2019-07-18] MEDS ORDERED: GLYCOPYRROLATE 0.2 MG/ML VIAL ONE (13:24)
[2019-07-18] MEDS ORDERED: ONDANSETRON INJ 2 MG/ML 2 ML VIAL IV PRN (13:24)
--- NOTE | 2019-07-18 13:54 | GI REPORT ---
Patient Name: Nadya Valles Procedure Date: 07/18/2019 1:33 PM Date of : 1930 Admit Type: Inpatient Age: 88 Gender: Female Attending MD: Asher Andrea MD Procedure: Upper GI endoscopy Providers: Asher Andrea MD Referring MD: Referred Self Indications: Hematemesis Medicines: General Anesthesia Complications: No immediate complications. Estimated blood loss: Minimal. Estimated Blood Loss: Estimated blood loss was minimal. Procedure: Pre-Anesthesia Assessment: - Prior to the procedure, a History and Physical was performed, and patient medications and allergies were reviewed. The patient's tolerance of previous anesthesia was also reviewed. The risks and benefits of the procedure and the sedation options and risks were discussed with the patient. All questions were answered, and informed consent was obtained. Prior Anticoagulants: The patient has taken aspirin, last dose was 2 days prior to procedure. ASA Grade Assessment: III - A patient with severe systemic disease. After reviewing the risks and benefits, the patient was deemed in satisfactory condition to undergo the procedure. After obtaining informed consent, the endoscope was passed under direct vision. Throughout the procedure, the patient's blood pressure, pulse, and oxygen saturations were monitored continuously. The Endoscope was introduced through the mouth, and advanced to the second part of duodenum. The upper GI endoscopy was accomplished without difficulty. The patient tolerated the procedure well. Findings: The esophagus was normal. The examined duodenum was normal. One non-bleeding cratered gastric ulcer with a visible vessel was found on the greater curvature of the gastric antrum. The lesion was 8 mm in largest dimension. Coagulation for hemostasis using bipolar probe was successful. Estimated blood loss: none. To prevent bleeding post-intervention, two hemostatic clips were successfully placed (MR conditional). There was no bleeding during, or at the end, of the procedure. Biopsies were taken with a cold forceps for histology. Verification of patient identification for the specimen was done by the physician. Impression: - Normal esophagus. - Normal examined duodenum. - Non-bleeding gastric ulcer with a visible vessel. Treated with bipolar cautery. Clips (MR conditional) were placed. Biopsied. Recommendation: - Await pathology results. - Repeat upper endoscopy in 3 months to check healing. - Return to GI clinic in 2 weeks. Asher Emre, M.Moisés Andrea MD 07/18/2019 1:54:04 PM This report has been signed electronically. Note Initiated On: 07/18/2019 1:33 PM Number of Addenda: 0 I attest to the content of the Intraoperative Record and orders documented therein, exceptions below {[id number]}
--- NOTE | 2019-07-18 14:27 | Anesthesiology Progress Note ---
Date of Service July 18, 2019 Anesthesia Post Procedure Vital Signs Vital Signs: Temp Pulse Pulse Pulse Resp BP BP 07/18/19 14:20 82 15 109/62 07/18/19 14:10 80 16 116/56 L 07/18/19 14:03 36.8 C 79 15 144/59 H 07/18/19 11:30 86 07/18/19 11:07 36.8 C 79 79 18 111/43 L 07/18/19 06:33 36.3 C L 81 20 104/40 L 07/18/19 04:19 36.7 C 86 20 116/53 L 07/18/19 03:03 36.7 C 86 20 124/49 L 07/18/19 03:00 36.7 C 86 20 124/49 L 07/18/19 02:40 36.8 C 85 20 112/45 L 07/18/19 02:10 36.6 C 87 20 110/47 L 07/18/19 01:45 36.7 C 95 H 20 115/44 L 07/18/19 01:30 36.8 C 93 H 20 101/45 L 07/18/19 01:22 95 H 07/18/19 01:14 36.7 C 90 20 124/46 L 07/18/19 01:00 36.9 C 87 20 106/49 L 07/18/19 00:58 36.9 C 89 20 109/48 L 07/18/19 00:27 36.9 C 89 20 101/48 L 07/18/19 00:26 36.9 C 89 20 101/48 L 07/18/19 00:15 36.9 C 89 20 99/47 L 07/17/19 23:58 97 H 20 109/52 L 07/17/19 23:45 36.9 C 86 18 109/48 L 07/17/19 23:24 36.9 C 84 19 105/49 L 07/17/19 23:00 99 H 17 103/46 L 07/17/19 22:54 36.8 C 86 16 105/44 L 07/17/19 22:39 36.8 C 90 19 113/43 L 07/17/19 22:15 36.8 C 95 H 19 128/54 L 07/17/19 21:30 90 18 107/49 L 07/17/19 21:11 101 H 19 110/62 07/17/19 20:30 96 H 18 102/69 07/17/19 20:13 36.7 C 107 H 17 104/51 L Pulse Ox 07/18/19 14:20 100 07/18/19 14:10 100 07/18/19 14:03 100 07/18/19 11:30 07/18/19 11:07 100 07/18/19 06:33 92 07/18/19 04:19 99 07/18/19 03:03 99 07/18/19 03:00 99 07/18/19 02:40 99 07/18/19 02:10 99 07/18/19 01:45 99 07/18/19 01:30 99 07/18/19 01:22 07/18/19 01:14 99 07/18/19 01:00 99 07/18/19 00:58 99 07/18/19 00:27 99 07/18/19 00:26 99 07/18/19 00:15 99 07/17/19 23:58 95 07/17/19 23:45 100 07/17/19 23:24 100 07/17/19 23:00 99 07/17/19 22:54 99 07/17/19 22:39 100 07/17/19 22:15 100 07/17/19 21:30 100 07/17/19 21:11 96 07/17/19 20:30 98 07/17/19 20:13 92 Transfer of Care Handoff Completed per policy Notes Mental Status: alert / awake / arousable and participated in evaluation Nausea / Vomiting: adequately controlled Pain: adequately controlled Airway Patency, RR, SpO2: stable & adequate BP & HR: stable & adequate Hydration State: stable & adequate Anesthetic Complications: no major complications apparent and Pt Satisfied with anesthetic care
[2019-07-18 15:24] LABS: Hematocrit (blood only) 24.7 % (37-47); Hemoglobin 8.4 g/dL (12.0-16.0); Mean Corpuscular Hemoglobin 32.6 pg (25-34); Mean Corpuscular Volume 95.7 fL (80-100); Mean Platelet Volume 10.1 fL (7.4-10.4); Platelet Count 157 K/uL (130-400); RDW Coefficient of Variation 18.5 % (11.5-14.5); RDW Standard Deviation 62.3 fL (36.4-46.3); Red Blood Count 2.58 M/uL (4.2-5.4)
--- NOTE | 2019-07-18 17:35 | Electrocardiogram Report ---
Test Reason : Blood Pressure : / mmHG Vent. Rate : 101 BPM Atrial Rate : 101 BPM P-R Int : 126 ms QRS Dur : 070 ms QT Int : 354 ms P-R-T Axes : 077 069 -46 degrees QTc Int : 459 ms Sinus tachycardia Abnormal ECG When compared with ECG of 07-MAR-2018 12:18, QT has lengthened Confirmed by Kody Gleason ([id number]) on 07/18/2019 5:35:05 PM Referred By: REFERRED SELF Confirmed By:Kody Gleason
[2019-07-18 20:25] LABS: Hematocrit (blood only) 24.3 % (37-47); Hemoglobin 8.3 g/dL (12.0-16.0); Immature Granulocytes # (auto) 0.01 K/uL (0.00-0.02); Immature Granulocytes % (auto) 0.1 %; Lymphocytes # (auto) 0.52 K/uL (1.2-3.4); Lymphocytes % (auto) 7.3 %; Mean Corpuscular Hemoglobin 32.4 pg (25-34); Mean Corpuscular Volume 94.9 fL (80-100); Monocytes # (auto) 0.07 K/uL (0.11-0.59); Neutrophils % (auto) 91.6 %; Platelet Count 149 K/uL (130-400); RDW Coefficient of Variation 18.6 % (11.5-14.5); RDW Standard Deviation 62.1 fL (36.4-46.3); Red Blood Count 2.56 M/uL (4.2-5.4)
[2019-07-18 20:26] LABS: Mean Corpuscular Hgb Conc 34.2 g/dL (32-36)
[2019-07-19] MEDS: SODIUM CHLORIDE 0.9% 1000ML 1,000 ML IV SCH (03:18)
[2019-07-19] MEDS: HYDROCORTISONE SOD 50 MG in SYRINGE 0 ML IV SCH (05:39)
[2019-07-19] MEDS: LEVOTHYROXINE SODIUM 88 MCG TABLET PO SCH (05:39)
[2019-07-19 06:39] LABS: Hematocrit (blood only) 25.6 % (37-47); Hemoglobin 8.6 g/dL (12.0-16.0); Mean Corpuscular Hemoglobin 32.7 pg (25-34); Mean Corpuscular Hgb Conc 33.6 g/dL (32-36); Mean Corpuscular Volume 97.3 fL (80-100); Mean Platelet Volume 10.3 fL (7.4-10.4); Platelet Count 162 K/uL (130-400); RDW Coefficient of Variation 18.8 % (11.5-14.5); RDW Standard Deviation 64.7 fL (36.4-46.3); Red Blood Count 2.63 M/uL (4.2-5.4); White Blood Count 7.44 K/uL (4.8-10.8)
[2019-07-19 07:18] LABS: BUN Creatinine Ratio 28.3 (10-20); Calcium 8.2 mg/dl (8.5-10.1); Est GFR (African American) 97.9; Est GFR (Non-African American) 84.4; Potassium 3.9 mmol/L (3.5-5.1)
[2019-07-19] MEDS: PANTOprazole 40 MG in SYRINGE 0 ML IV SCH ×2 (09:24→20:35)
[2019-07-19] MEDS: predniSONE 5 MG TAB PO SCH (09:24)
--- NOTE | 2019-07-19 11:41 | Electrocardiogram Report ---
Test Reason : Blood Pressure : / mmHG Vent. Rate : 078 BPM Atrial Rate : 078 BPM P-R Int : 110 ms QRS Dur : 074 ms QT Int : 372 ms P-R-T Axes : 074 072 268 degrees QTc Int : 424 ms Sinus rhythm with short [place] Possible Left atrial enlargement T wave abnormality, consider inferolateral ischemia Abnormal ECG When compared with ECG of 17-JUL-2019 20:05, T wave inversion now evident in Anterior leads Confirmed by Kody Gleason ([id number]) on 07/19/2019 11:41:11 AM Referred By: REFERRED SELF Confirmed By:Kody Gleason
--- NOTE | 2019-07-19 12:23 | Hospitalist Progress Note ---
Date of Service July 19, 2019 Assessment & Plan (1) GI bleed: Presented with hematochezia and hematemesis Hemoglobin was 7.5 on admission down from baseline of 13.5 With hypotension Responded to IV fluids and was transfused 2 units PRBCs, hgb now up and stable at 8.6 EGD as below with gastric ulcer -Continue to follow serial CBC, now daily -Continue PPI as below -Transfuse as needed Blood pressures improved also with stress dose steroids as below (2) Peptic ulcer disease: Presented with acute GI bleed and found to have an 8 mm cratered gastric ulcer with a visible vessel-clipped -Continue IV Protonix twice daily and convert to p.o. twice daily upon discharge x 2-3 months, then recommend continuing once daily indefinitely given chronic prednisone use -Needs repeat EGD in 3 months -Follow-up with GI as an outpatient 2 weeks -adv diet to full liquids today -Moderate risk for rebleed as per GI-we will continue observation here for at least one more day -She is on chronic prednisone which cannot be stopped suddenly-hopefully will be protected with Protonix now -Avoid all NSAIDs and aspirin-dc home ASA -Follow-up on pathology from biopsy of stomach for H. pylori (3) Anemia due to blood loss, acute: As above, now improved status post transfusion-hgb stable at 8.6 as above No more bleeding, no further melena/hematochezia/hematemesis since admission -Follow CBC again in the morning Transfuse as needed -with some mild hypotension and lightheadedness today but no further bleeding, probably related to adrenal insufficiency (4) Hypothyroidism: levothyroxine held due to NPO status, recent TSH normal at 1.1 -continue levothyroxine 88 mcg in the morning (5) Hyperlipidemia: -continue pravastatin (6) Rheumatoid arthritis: On chronic prednisone and methotrexate Prednisone use likely contributed to peptic ulcer disease -Stress dosed steroids being given while n.p.o.--> will now dc IV hydrocortisone and keep an eye on BPs -continue home p.o. 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 (8) Severe hearing loss of both ears: Noted, follows with audiology and considering cochlear implants (9) Abnormal ECG: ECG with anterolateral T wave inversions, troponin is negative x2, patient denies chest pain Likely secondary to severe anemia -now s/p transfusion (10) Renal mass: CT with left renal possible mass 1.4 x 1.1 cm-stable from previous -Follow-up as outpatient-discussed with patient, her daughter, son-in-law at bedside Consider Urology follow up although is stable for 18 months at least now-no urinary symptoms (11) DVT prophylaxis: SCDs only given acute GI bleeding Disposition-stable for downgrade to med/tele Subjective Pt reports feeling lightheaded at times. No CP or SOB, no abd pains or urinary symptoms. Is tolerating a clears diet. No BM, no N/V, no further bleeding. Her was admitted yesterday and is in the room wiht her as well. Tele with NSR, rates 70-80s Daughter and son in law in the room with her and discussed her condition with them Review of Systems Review of Systems: All systems reviewed & are unremarkable except as noted in HPI & below Physical Exam Constitutional: + thin (sitting in a chair); no acute distress Eyes: + anicteric sclerae ENMT: Ears: + hearing impairment Neck: trachea midline, no thyromegaly Respiratory: normal respiratory effort, lungs clear to auscultation Cardiovascular: RRR, no murmur, no edema Chest (Breasts): Chest: normal inspection of chest Gastrointestinal (Abdomen): normal bowel sounds, soft, nontender, no hepatosplenomegaly Musculoskeletal: Extremities: extremities normal to inspection; no cyanosis and no clubbing Skin: no rashes, warm and dry Neurologic: moves all extremities and awake; no focal motor deficits Psychiatric: Orientation: alert, oriented to person and cooperative Lymphatic: no lymphedema Results & Data ([facility]) Vital Signs (Past 12 Hours) Vital Signs Temp Pulse Pulse Pulse Resp BP Pulse Ox 07/19/19 11:42 36.7 C 72 20 95 07/19/19 11:41 77 07/19/19 11:37 107/38 L 07/19/19 07:06 36.6 C 77 18 105/40 L 98 07/19/19 06:00 94 07/19/19 03:19 36.6 C 78 18 106/52 L 99 Laboratory Results 07/19/19 07/19/19 07/18/19 Range/Units 06:06 06:06 20:07 WBC 7.44 7.10 (4.8-10.8) K/uL RBC 2.63 L 2.56 L (4.2-5.4) M/uL Hgb 8.6 L 8.3 L (12.0-16.0) g/dL Hct 25.6 L 24.3 L (37-47) % MCV 97.3 94.9 (80-100) fL MCH 32.7 32.4 (25-34) pg MCHC 33.6 34.2 (32-36) g/dL RDW Std Deviation 64.7 H 62.1 H (36.4-46.3) fL RDW Coeff of Jannette 18.8 H 18.6 H (11.5-14.5) % Plt Count 162 149 (130-400) K/uL MPV 10.3 10.0 (7.4-10.4) fL Immature Gran % (Auto) 0.1 % Neut % (Auto) 91.6 % Lymph % (Auto) 7.3 % [place] % (Auto) 1.0 % Eos % (Auto) 0.0 % Baso % (Auto) 0.0 % Immature Gran # (Auto) 0.01 (0.00-0.02) K/uL Neut # (Auto) 6.50 (1.4-6.5) K/uL Lymph # (Auto) 0.52 L (1.2-3.4) K/uL [place] # (Auto) 0.07 L (0.11-0.59) K/uL Eos # (Auto) 0.00 (0-0.5) K/uL Baso # (Auto) 0.00 (0-0.2) K/uL Sodium 145 (136-145) mmol/L Potassium 3.9 (3.5-5.1) mmol/L Chloride 115 H (98-107) mmol/L Carbon Dioxide 27 (21-32) mmol/L Anion Gap 3.0 (3-11) BUN 16 (7-18) mg/dl Creatinine 0.56 L (0.6-1.2) mg/dl Est Cr Clr Drug Dosing 61.0 ml/min Est GFR ( Amer) 97.9 Est GFR (Non-Af Amer) 84.4 BUN/Creatinine Ratio 28.3 H (10-20) Glucose 97 (70-99) mg/dl Calcium 8.2 L (8.5-10.1) mg/dl Crossmatch 07/18/19 07/17/19 Range/Units 15:08 20:36 WBC 7.70 (4.8-10.8) K/uL RBC 2.58 L (4.2-5.4) M/uL Hgb 8.4 L (12.0-16.0) g/dL Hct 24.7 L (37-47) % MCV 95.7 (80-100) fL MCH 32.6 (25-34) pg MCHC 34.0 (32-36) g/dL RDW Std Deviation 62.3 H (36.4-46.3) fL RDW Coeff of Jannette 18.5 H (11.5-14.5) % Plt Count 157 (130-400) K/uL MPV 10.1 (7.4-10.4) fL Immature Gran % (Auto) % Neut % (Auto) % Lymph % (Auto) % [place] % (Auto) % Eos % (Auto) % Baso % (Auto) % Immature Gran # (Auto) (0.00-0.02) K/uL Neut # (Auto) (1.4-6.5) K/uL Lymph # (Auto) (1.2-3.4) K/uL [place] # (Auto) (0.11-0.59) K/uL Eos # (Auto) (0-0.5) K/uL Baso # (Auto) (0-0.2) K/uL Sodium (136-145) mmol/L Potassium (3.5-5.1) mmol/L Chloride (98-107) mmol/L Carbon Dioxide (21-32) mmol/L Anion Gap (3-11) BUN (7-18) mg/dl Creatinine (0.6-1.2) mg/dl Est Cr Clr Drug Dosing ml/min Est GFR ( Amer) Est GFR (Non-Af Amer) BUN/Creatinine Ratio (10-20) Glucose (70-99) mg/dl Calcium (8.5-10.1) mg/dl Crossmatch See Detail BCxs no growth to date PG Care Time/CCT Total # of Minutes Spent Total Time Spent with Patient: Total time spent is greater than 50% in coordination of care (as documented) at patient's floor/unit and/or counseling patient: Coding Level of Care Code 28875 Subseq Hosp Care Lvl 3 Diagnoses GI bleed K92.2 Peptic ulcer disease K27.9 Anemia due to blood loss, acute D62 Hypothyroidism E03.9 Hyperlipidemia E78.5 Rheumatoid arthritis M06.9 Immunosuppression due to chronic steroid use Z79.52 Severe hearing loss of both ears H91.93 Abnormal ECG R94.31 Renal mass N28.89 DVT prophylaxis Z29.9
--- NOTE | 2019-07-19 14:20 | Gastroenterology Progress Note ---
Date of Service July 19, 2019 Assessment & Plan (1) Hematemesis: Confirmed gastric ulcer with visible vessel. S?P clipping and cauterization. Plan discharge tomorrow. Advance to regular diet this evening. F/u biopsy results, clinic follow up F/u EGD after 3 months of PPi therapy Subjective Doing well. No additional bleed. Hct stable. Results & Data Vital Signs (Past 12 Hours) Vital Signs Temp Pulse Pulse Pulse Resp BP Pulse Ox 07/19/19 11:42 36.7 C 72 20 95 07/19/19 11:41 77 07/19/19 11:37 107/38 L 07/19/19 07:06 36.6 C 77 18 105/40 L 98 07/19/19 06:00 94 07/19/19 03:19 36.6 C 78 18 106/52 L 99 (1) Hematemesis Nausea presence: unspecified Qualified Code(s): K92.0 - Hematemesis
[2019-07-19] MEDS ORDERED: ACETAMINOPHEN 325 MG TAB PO PRN (15:59)
[2019-07-19] MEDS: PRAVASTATIN SOD 40 MG TAB PO SCH (16:27)
[2019-07-20] MEDS: LEVOTHYROXINE SODIUM 88 MCG TABLET PO SCH (06:30)
[2019-07-20 07:43] LABS: Basophils # (auto) 0.02 K/uL (0-0.2); Basophils % (auto) 0.3 %; Eosinophils # (auto) 0.19 K/uL (0-0.5); Eosinophils % (auto) 2.9 %; Hemoglobin 7.8 g/dL (12.0-16.0); Immature Granulocytes # (auto) 0.02 K/uL (0.00-0.02); Immature Granulocytes % (auto) 0.3 %; Lymphocytes # (auto) 1.46 K/uL (1.2-3.4); Lymphocytes % (auto) 22.3 %; Mean Corpuscular Hemoglobin 32.6 pg (25-34); Mean Corpuscular Hgb Conc 33.9 g/dL (32-36); Mean Corpuscular Volume 96.2 fL (80-100); Mean Platelet Volume 9.9 fL (7.4-10.4); Monocytes # (auto) 0.41 K/uL (0.11-0.59); Monocytes % (auto) 6.3 %; Neutrophils # (auto) 4.44 K/uL (1.4-6.5); Neutrophils % (auto) 67.9 %; Platelet Count 161 K/uL (130-400); RDW Coefficient of Variation 18.1 % (11.5-14.5); RDW Standard Deviation 62.3 fL (36.4-46.3); Red Blood Count 2.39 M/uL (4.2-5.4); White Blood Count 6.54 K/uL (4.8-10.8)
[2019-07-20] MEDS: PANTOprazole 40 MG in SYRINGE 0 ML IV SCH (08:01)
[2019-07-20] MEDS: predniSONE 5 MG TAB PO SCH (08:01)
[2019-07-20 08:27] LABS: BUN Creatinine Ratio 18.3 (10-20); Calcium 8.3 mg/dl (8.5-10.1); Creatinine Clr Calc Pharmacy 56.7 ml/min; Est GFR (African American) 94.6; Est GFR (Non-African American) 81.6; Potassium 3.2 mmol/L (3.5-5.1)
[2019-07-20 08:34] LABS: RBC Morphology Unremarkable
--- NOTE | 2019-07-20 11:34 | Hospitalist Progress Note ---
Date of Service July 20, 2019 Assessment & Plan (1) GI bleed: Presented with hematochezia and hematemesis Hemoglobin was 7.5 on admission down from baseline of 13.5 With hypotension Responded to IV fluids and was transfused 2 units PRBC hb was 8.6 on 07/19, down slightly at 7.8 today and she had a dark BM will repeat Hb this afternoon and monitor for further melena certainly could be normal to still have some melena has no light headedness, no pre-syncope EGD as below with gastric ulcer -Continue PPI as below -Transfuse as needed Blood pressures improved also with stress dose steroids as below (2) Peptic ulcer disease: Presented with acute GI bleed and found to have an 8 mm cratered gastric ulcer with a visible vessel-clipped -Continue IV Protonix twice daily and convert to p.o. twice daily upon discharge x 2-3 months, then recommend continuing once daily indefinitely given chronic prednisone use -Needs repeat EGD in 3 months -Follow-up with GI as an outpatient 2 weeks -tolerating regular diet -Moderate risk for rebleed as per GI-we will continue observation here for at least one more day -She is on chronic prednisone which cannot be stopped suddenly-hopefully will be protected with Protonix now -Avoid all NSAIDs and aspirin-dc home ASA -Follow-up on pathology from biopsy of stomach for H. pylori (3) Anemia due to blood loss, acute: As above, was improved status post transfusion-hgb was 8.6, down to 7.8 today will repeat this afternoon some dark stools this morning which could just be old blood, will watch closely -Follow H/H Transfuse as needed (4) Hypothyroidism: levothyroxine held due to NPO status, recent TSH normal at 1.1 -continue levothyroxine 88 mcg in the morning (5) Hyperlipidemia: -continue pravastatin (6) Rheumatoid arthritis: On chronic prednisone and methotrexate Prednisone use likely contributed to peptic ulcer disease -Stress dosed steroids being given while n.p.o.--> will now dc IV hydrocortisone and keep an eye on BPs -continue home p.o. 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 (8) Severe hearing loss of both ears: Noted, follows with audiology and considering cochlear implants (9) Abnormal ECG: ECG with anterolateral T wave inversions, troponin is negative x2, patient denies chest pain Likely secondary to severe anemia -now s/p transfusion (10) Renal mass: CT with left renal possible mass 1.4 x 1.1 cm-stable from previous -Follow-up as outpatient-discussed with patient, her daughter, son-in-law at bedside Consider Urology follow up although is stable for 18 months at least now-no urinary symptoms (11) DVT prophylaxis: SCDs only given acute GI bleeding Disposition-stable for downgrade to med/tele Subjective patient feels okay this morning, no new issues she ambulated to the restroom with assistance, no light headedness she had a dark, formed stool, still quite dark no clark blood seen ate her entire breakfast, no nausea, no abdominal pain Hb down slightly from 8.6 to 7.8, BP low normal discussed with her that we will need to repeat Hb this afternoon will discuss with GI if Hb drops further updated her who is in the room with her, also admitted to hospital Review of Systems Review of Systems: All systems reviewed & are unremarkable except as noted in HPI & below Constitutional: no fatigue and no weakness Respiratory: no dyspnea on exertion Gastrointestinal: + melena; no abdominal pain, no nausea, no vomiting, no constipation and no diarrhea/loose stools Physical Exam Constitutional: WD/WN, vitals as above Eyes: PERRL, conjunctivae normal, anicteric sclerae ENMT: external ear and nose normal, oropharynx normal Neck: trachea midline, no thyromegaly Respiratory: normal respiratory effort, lungs clear to auscultation Cardiovascular: RRR, no murmur, no edema Gastrointestinal (Abdomen): normal bowel sounds, soft, nontender, no hepatosplenomegaly Musculoskeletal: no cyanosis or clubbing, extremities motor strength 5/5 (Arthritic changes in fingers bilaterally) Skin: no rashes, warm and dry Neurologic: patellar DTR's 2+ bilat, sensation intact and PERRL, EOMI, accommodation nl, no face palsy, no dysarthria Psychiatric: A+Ox3, euthymic affect Lymphatic: no cervical or axillary lymphadenopathy Results & Data ([facility]) Vital Signs (Past 12 Hours) Vital Signs Temp Pulse Pulse Resp BP Pulse Ox 07/20/19 11:06 36.7 C 75 18 99/62 L 95 07/20/19 08:00 95 H 07/20/19 07:42 36.7 C 70 18 110/63 94 07/20/19 04:26 36.6 C 77 20 109/64 95 07/20/19 01:31 76 Laboratory Results Laboratory Results - last 24 hr 07/20/19 07/20/19 07:20 07:20 WBC 6.54 RBC 2.39 L Hgb 7.8 L Hct 23.0 L MCV 96.2 MCH 32.6 MCHC 33.9 RDW Std Deviation 62.3 H RDW Coeff of Jannette 18.1 H Plt Count 161 MPV 9.9 Immature Gran % (Auto) 0.3 Neut % (Auto) 67.9 Lymph % (Auto) 22.3 [place] % (Auto) 6.3 Eos % (Auto) 2.9 Baso % (Auto) 0.3 Immature Gran # (Auto) 0.02 Neut # (Auto) 4.44 Lymph # (Auto) 1.46 [place] # (Auto) 0.41 Eos # (Auto) 0.19 Baso # (Auto) 0.02 RBC Morphology Unremarkable Sodium 143 Potassium 3.2 L D Chloride 112 H Carbon Dioxide 27 Anion Gap 4.0 BUN 11 Creatinine 0.62 Est Cr Clr Drug Dosing 56.7 Est GFR ( Amer) 94.6 Est GFR (Non-Af Amer) 81.6 BUN/Creatinine Ratio 18.3 Glucose 88 Calcium 8.3 L Medications Administered Current Inpatient Medications Acetaminophen (Tylenol) 650 mg PO Q4H PRN PRN Reason: Pain Stop: 08/18/19 15:58 Pantoprazole Sodium 40 mg/ (Syringe) 10 mls @ 5 mls/min IV BID@0900,2100 [facility] Stop: 08/17/19 08:59 Last Admin: 07/20/19 08:01 Dose: 5 mls/min Documented by: Ioversol (Optiray 320 100ml) 93 ml IV ONCE PRN PRN Reason: Interaction Checking Stop: 07/21/19 22:02 Last Admin: 07/17/19 22:03 Dose: 93 ml Documented by: Levothyroxine Sodium (Synthroid) 88 mcg PO DAILYBB [facility] Stop: 08/18/19 06:29 Last Admin: 07/20/19 06:30 Dose: 88 mcg Documented by: Ondansetron HCl (Zofran) 4 mg IV Q6H PRN PRN Reason: nausea or vomiting Stop: 08/16/19 23:15 Pravastatin Sodium (Pravachol) 80 mg PO DAILY@1700 [facility] Stop: 08/18/19 16:59 Last Admin: 07/19/19 16:27 Dose: 80 mg Documented by: Prednisone (Prednisone) 5 mg PO DAILY [facility] Stop: 08/18/19 08:59 Last Admin: 07/20/19 08:01 Dose: 5 mg Documented by: PG Care Time/CCT Total # of Minutes Spent Total Time Spent with Patient: Total time spent is greater than 50% in coordination of care (as documented) at patient's floor/unit and/or counseling patient: Coding Level of Care Code 17565 Subseq Hosp Care Lvl 3 Diagnoses GI bleed K92.2 Peptic ulcer disease K27.9 Anemia due to blood loss, acute D62 Hypothyroidism E03.9 Hyperlipidemia E78.5 Rheumatoid arthritis M06.9 Immunosuppression due to chronic steroid use Z79.52 Severe hearing loss of both ears H91.93 Abnormal ECG R94.31 Renal mass N28.89 DVT prophylaxis Z29.9
[2019-07-20 13:17] LABS: Hematocrit (blood only) 27.3 % (37-47); Hemoglobin 9.1 g/dL (12.0-16.0)
--- NOTE | 2019-07-20 15:39 | Progress Note ---
DATE: 07/20/2019 SUBJECTIVE: The patient was endoscoped over the weekend for hematemesis and anemia and found to have a gastric ulcer in the antrum on the greater curvature, probably from her aspirin. This was cauterized and clipped by Dr. Asher Andrea with no further bleeding. This was done because there was a visible vessel at the time of the procedure, but no active bleeding since then she has been doing well. She is eating solid food. She had a single bowel movement today that was dark brown with no obvious bleeding and no abdominal pain. He did biopsies in the stomach for H. pylori that are pending. PHYSICAL EXAMINATION: GENERAL: The patient appears in no acute distress, sitting in a bedside chair. There is no abdominal pain on palpation. SKIN: Not overly pale. Hemoglobin is 9.1 after 2 units. IMPRESSION: The patient had a bleeding gastric ulcer, probably from her aspirin. I would recommend that the patient continue to take a proton pump inhibitor if she is going to continue to take aspirin going forward. If she is no longer taking aspirin then she can probably stop the proton pump inhibitor in 2-3 months. Obviously, if her H. pylori returns positive, she will need to be treated with quadruple therapy for 2 weeks to eradicate the H. pylori.
[2019-07-20] MEDS: PRAVASTATIN SOD 40 MG TAB PO SCH (16:12)
[2019-07-20] MEDS: PANTOprazole 40 MG TAB PO SCH (20:18)
[2019-07-21] MEDS ORDERED: POTASSIUM CHLORIDE 20 MEQ/15 ML UDC PO STA (04:14)
[2019-07-21] MEDS: POTASSIUM CHLORIDE / WTR 10 MEQ/100 ML PLCT IV SCH ×2 (04:36→05:44)
[2019-07-21] MEDS: LEVOTHYROXINE SODIUM 88 MCG TABLET PO SCH (05:30)
[2019-07-21] MEDS: PANTOprazole 40 MG TAB PO SCH ×2 (07:56→20:33)
[2019-07-21] MEDS: predniSONE 5 MG TAB PO SCH (07:56)
[2019-07-21 08:08] LABS: Hematocrit (blood only) 26.1 % (37-47); Hemoglobin 8.9 g/dL (12.0-16.0)
--- NOTE | 2019-07-21 11:15 | Discharge Summary ---
Date of Service July 21, 2019 Principal Diagnosis Acute blood loss anemia due to gastric ulcer Discharge Exam Constitutional WD/WN, vitals as above Eyes PERRL, conjunctivae normal, anicteric sclerae ENMT external ear and nose normal, oropharynx normal Neck trachea midline, no thyromegaly Respiratory normal respiratory effort, lungs clear to auscultation Cardiovascular RRR, no murmur, no edema Gastrointestinal (Abdomen) normal bowel sounds, soft, nontender, no hepatosplenomegaly Musculoskeletal no cyanosis or clubbing, extremities motor strength 5/5 (Arthritic changes in fingers bilaterally) Skin no rashes, warm and dry Neurologic patellar DTR's 2+ bilat, sensation intact and PERRL, EOMI, accommodation nl, no face palsy, no dysarthria Psychiatric A+Ox3, euthymic affect Lymphatic no cervical or axillary lymphadenopathy Discharge Data Allergies Allergy/AdvReac Type Severity Reaction Status Date / Time Bactrim Allergy Unknown RASH Verified 10/27/14 08:06 sulfamethoxazole Allergy Unknown RASH Verified 07/07/19 14:47 trimethoprim Allergy Unknown RASH Verified 07/07/19 14:47 Consultations 07/17/19 21:17 ED Decision to Admit Stat 07/17/19 23:42 Consult Gastroenterology Routine Procedures Performed Operation Date: 07/18/19 13:00 Actual Procedures p Esophagogastroduodenoscopy for GI Bleed(Not Applicable) - Asher Andrea Ordered Studies 07/17/19 21:04 CT abd pelvis IV con only Stat Hospital Course (1) GI bleed: Presented with hematochezia and hematemesis Hemoglobin was 7.5 on admission down from baseline of 13.5 With hypotension Responded to IV fluids and was transfused 2 units PRBC Hb is stable, 9.1 on 07/20 and 8.9 on 07/21 no signs of active bleeding has no light headedness, no pre-syncope EGD as below with gastric ulcer -Continue PPI as below Blood pressures improved also with stress dose steroids as below (2) Peptic ulcer disease: Presented with acute GI bleed and found to have an 8 mm cratered gastric ulcer with a visible vessel-clipped -treated with IV Protonix twice daily and convert to p.o. twice daily upon discharge x 2-3 months, then recommend continuing once daily indefinitely given chronic prednisone use -Needs repeat EGD in 3 months -Follow-up with GI as an outpatient 2-3 weeks -tolerating regular diet -Avoid all NSAIDs and aspirin-dc home ASA -Follow-up on pathology from biopsy of stomach for H. pylori, still pending at discharge (3) Anemia due to blood loss, acute: As above, was improved status post transfusion-hgb 9.1 on 07/20 and 8.9 on 07/21 some dark stools morning of 07/20 but most likely old blood (4) Hypothyroidism: levothyroxine held due to NPO status, recent TSH normal at 1.1 -continue levothyroxine 88 mcg in the morning (5) Hyperlipidemia: -continue pravastatin (6) Rheumatoid arthritis: On chronic prednisone and methotrexate Prednisone use likely contributed to peptic ulcer disease -Stress dosed steroids being given while n.p.o.--> will now dc IV hydrocortisone and keep an eye on BPs -continue home p.o. 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 (8) Severe hearing loss of both ears: Noted, follows with audiology and considering cochlear implants (9) Abnormal ECG: ECG with anterolateral T wave inversions, troponin is negative x2, patient denies chest pain Likely secondary to severe anemia -now s/p transfusion (10) Renal mass: CT with left renal possible mass 1.4 x 1.1 cm-stable from previous -Follow-up as outpatient-discussed with patient, her daughter, son-in-law at bedside Consider Urology follow up although is stable for 18 months at least now-no urinary symptoms (11) DVT prophylaxis: SCDs only given acute GI bleeding Disposition- d/c to home Total Time Total Time Spent Total Time Spent (In Minutes): 33 minutes Total Time Includes: Examination of the Patient, Discharge Planning, Medication Reconciliation and Other (Discussion with family) Discharge Plan Discharge Items Patient Disposition: Home - Home Health Services Reason For Visit: GI BLEED,ANEMIA Discharge Diagnosis: GI bleed from gastric ulcer Acute blood loss anemia Condition on Discharge: Good Goals: improve strength and mobility improve nutrition and hydration Activity: Resume your previous activity Driving/Machine Use: Resume 3 days after discharge Weightbearing: Full weightbearing Non-emergency contact: Primary Care Provider Call non-emergency contact if: you have any medication questions, your symptoms worsen and you have a fever Follow-up/Referrals: Mauro Barnard MD [Primary Care Provider] - (Please, follow up with Dr. Milan Oleary. *A nurse from this office will call you with the appointment information. If you have any questions, call the office at [phone].) Diet: Heart Healthy Addtl Attending Provider Instructions: Medications: -Protonix: 40mg twice a day for 2-3 months, then can reduce to once a day this is acid suppression to help ulcer heal and prevent further ulcers Gastric ulcer causing GI bleed bleeding resolved for several days, hemoglobin is stable at 8.9 today EGD showed the gastric ulcer, treated with clip and epinephrine biopsies were taken for H pylori, still pending if H pylori would be positive (this is a bacteria that can be in stomach) then you would need antibiotics, your PCP can follow up on this result treatment for the ulcer is Protonix 40mg twice a day for at least 2 months can then reduce to once a day take the Protonix indefinitely if you plan to continue on aspirin and Prednisone FOLLOW UP - Dr. Milan Oleary in one week - [facility] in 2-3 weeks Pending Studies at Discharge: Yes Studies:: Gastric biopsy for H pylori Stand-Alone Forms: My [facility] [employer], Smoking Cessation Medications and DC Order Prescriptions: New pantoprazole 40 mg Tablet,Delayed Release (Dr/Ec) 40 mg PO BID 30 Days Qty: 60 RF: 3 Continued omega-3 fatty acids-fish oil [Fish Oil] 360-1,200 mg capsule 1 cap PO DAILY RF: 0 ginkgo biloba 120 mg tablet 120 mg PO DAILY RF: 0 cholecalciferol (vitamin D3) PO RF: 0 aspirin [Adult Aspirin Regimen] 81 mg tablet,delayed release (DR/EC) 81 mg PO DAILY RF: 0 ascorbic acid (vitamin C) 1,000 mg tablet 1 gm PO Q6H RF: 0 calcium carbonate [Calcium 600] 600 mg calcium (1,500 mg) tablet 600 mg PO DAILY RF: 0 prednisone 5 mg Tablet 5 mg PO DAILY RF: 0 levothyroxine 88 mcg Tablet 88 mcg PO DAILY RF: 0 pravastatin 80 mg Tablet 80 mg PO DAILY RF: 0 methotrexate sodium 2.5 mg Tablet 15 mg PO WK RF: 0 folic acid 1 mg Tablet 1 mg PO 6XWK RF: 0 solifenacin [Vesicare] 5 mg Tablet 5 mg PO DAILY RF: 0 Discharge Orders: Discharge Order (Routine); Ordered 07/21/19 Ordered By: Tera Florence Admission Data Admit Date/Time: 07/17/19 22:29 Attending Provider: Tera Florence Admit Provider: Guillermo Lujan Primary Care Provider: Mauro Barnard Other Providers: Guillermo Lujan ; Asher Andrea Coding Level of Care Code D/C Day Management >30 mins Diagnoses GI bleed K92.2 Peptic ulcer disease K27.9 Anemia due to blood loss, acute D62 Hypothyroidism E03.9 Hyperlipidemia E78.5 Rheumatoid arthritis M06.9 Immunosuppression due to chronic steroid use Z79.52 Severe hearing loss of both ears H91.93 Abnormal ECG R94.31 Renal mass N28.89 DVT prophylaxis Z29.9
[2019-07-21] MEDS: PRAVASTATIN SOD 40 MG TAB PO SCH (17:13)
[2019-07-22] MEDS: LEVOTHYROXINE SODIUM 88 MCG TABLET PO SCH (06:06)
[2019-07-22] MEDS: PANTOprazole 40 MG TAB PO SCH (07:59)
[2019-07-22] MEDS: predniSONE 5 MG TAB PO SCH (08:42)
--- NOTE | 2019-07-22 12:44 | Hospitalist Progress Note ---
Date of Service July 21, 2019 Assessment & Plan (1) GI bleed: Presented with hematochezia and hematemesis Hemoglobin was 7.5 on admission down from baseline of 13.5 With hypotension Responded to IV fluids and was transfused 2 units PRBC Hb is stable, 9.1 on 07/20 and 8.9 on 07/21 no signs of active bleeding has no light headedness, no pre-syncope EGD as below with gastric ulcer -Continue PPI as below Blood pressures improved also with stress dose steroids as below hopeful for d/c to home on 07/22 (2) Peptic ulcer disease: Presented with acute GI bleed and found to have an 8 mm cratered gastric ulcer with a visible vessel-clipped -treated with IV Protonix twice daily and convert to p.o. twice daily upon discharge x 2-3 months, then recommend continuing once daily indefinitely given chronic prednisone use -Needs repeat EGD in 3 months -Follow-up with GI as an outpatient 2-3 weeks -tolerating regular diet -Avoid all NSAIDs and aspirin-dc home ASA -Follow-up on pathology from biopsy of stomach for H. pylori, still pending (3) Anemia due to blood loss, acute: As above, was improved status post transfusion-hgb 9.1 on 07/20 and 8.9 on 07/21 some dark stools morning of 07/20 but most likely old blood no further melena (4) Hypothyroidism: levothyroxine held due to NPO status, recent TSH normal at 1.1 -continue levothyroxine 88 mcg in the morning (5) Hyperlipidemia: -continue pravastatin (6) Rheumatoid arthritis: On chronic prednisone and methotrexate Prednisone use likely contributed to peptic ulcer disease -Stress dosed steroids being given while n.p.o.--> will now dc IV hydrocortisone and keep an eye on BPs -continue home p.o. 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: As noted above (8) Severe hearing loss of both ears: Noted, follows with audiology and considering cochlear implants (9) Abnormal ECG: ECG with anterolateral T wave inversions, troponin is negative x2, patient denies chest pain Likely secondary to severe anemia -now s/p transfusion (10) Renal mass: CT with left renal possible mass 1.4 x 1.1 cm-stable from previous -Follow-up as outpatient-discussed with patient, her daughter, son-in-law at bedside Consider Urology follow up although is stable for 18 months at least now-no urinary symptoms (11) DVT prophylaxis: SCDs only given acute GI bleeding Disposition- d/c to home on 07/22 if her strength improves, if she is still too weak then will need rehab Subjective patient was stable medically, vitals normal Hb was stable at 8.9 she c/o feeling a little weak and she had concerns about going home alone discussed with CM, her family was out of town so no one would be available I agreed that this was not safe for her OT gave her a score of 22, PT gave her a score of only 17, possible need for rehab patient eating well, no melena, no abdominal pain no chest pain, no dyspnea only c/o weakness when walking Review of Systems Review of Systems: All systems reviewed & are unremarkable except as noted in HPI & below Physical Exam Constitutional: WD/WN, vitals as above Eyes: PERRL, conjunctivae normal, anicteric sclerae ENMT: external ear and nose normal, oropharynx normal Neck: trachea midline, no thyromegaly Respiratory: normal respiratory effort, lungs clear to auscultation Cardiovascular: RRR, no murmur, no edema Gastrointestinal (Abdomen): normal bowel sounds, soft, nontender, no hepat osplenomegaly Musculoskeletal: no cyanosis or clubbing, extremities motor strength 5/5 (Arthritic changes in fingers bilaterally) Skin: no rashes, warm and dry Neurologic: patellar DTR's 2+ bilat, sensation intact and PERRL, EOMI, accommodation nl, no face palsy, no dysarthria Psychiatric: A+Ox3, euthymic affect Lymphatic: no cervical or axillary lymphadenopathy Results & Data ([facility]) Vital Signs (Past 12 Hours) Vital Signs Temp Pulse Pulse Pulse Resp BP BP 07/22/19 11:46 36.5 C 93 H 80 16 123/66 133/52 L 07/22/19 11:00 36.5 C 93 H 16 133/52 L 07/22/19 07:30 86 07/22/19 07:00 36.7 C 73 16 123/66 07/22/19 03:37 36.8 C 80 18 130/68 Pulse Ox 07/22/19 11:46 94 02/05/20 11:00 94 07/22/19 07:30 07/22/19 07:00 94 07/22/19 03:37 92 PG Care Time/CCT Total # of Minutes Spent Total Time Spent with Patient: Total time spent is greater than 50% in coordination of care (as documented) at patient's floor/unit and/or counseling patient: Coding Level of Care Code 10351 Subseq Hosp Care Lvl 2 Diagnoses GI bleed K92.2 Peptic ulcer disease K27.9 Anemia due to blood loss, acute D62 Hypothyroidism E03.9 Hyperlipidemia E78.5 Rheumatoid arthritis M06.9 Immunosuppression due to chronic steroid use Z79.52 Severe hearing loss of both ears H91.93 Abnormal ECG R94.31 Renal mass N28.89 DVT prophylaxis Z29.9
== END 2019-07-22 16:42 | disposition home health service (06) | DRG 378 ==
LOC: ED 19:59 → 2E 22:29 → SUATTDRO 22:29 → 2E 23:11 → 2N 07-19 16:19